=== PATIENT | female | born 1990 | race Caucasian/White ===

== ENCOUNTER → 2016-11-13 | Day surgery (SDC) | payer BC ==
[~2016-11-13] VITALS: Ht 167.6 cm; Wt 89.8 kg
[~2016-11-13] MED LIST: ACET50TA PO; BUPIVACAINE HCL 0.5% 10 ML VIAL XX ONE; BUPIVACAINE/EPIN 0.5% 30 ML VIAL As Ordered ONE; HYDROmorphone HCL 2 MG/ML 1ML VIAL (J1170) As Ordered ONE; LABETALOL HCL 100 MG/20 ML VIAL As Ordered ONE; LIDOCAINE W/EPINEPHRINE 1% 20ML VIAL As Ordered ONE; LIDOCAINE W/EPINEPHRINE 1% 20ML VIAL XX ONE; LR 1,000 ML IV SCH; MIDAZOLAM INJ 2 MG/2 ML VIAL (J2250) As Ordered ONE; MORPHINE 10 MG/ML 1ML VIAL IV PRN; MOTR200T40 PO; NUVAMIS2 VA; ONDANSETRON 4 MG ORAL DISINTEGRATING TAB (S0181) PO ONE; ONDANSETRON 4MG/2ML VIAL (J2405) As Ordered ONE; OXYC1TAB23 PO; PERCOCET 5MG/325MG TAB PO PRN; PHEN-239 PO; PROPOFOL 200 MG/20 ML VIAL As Ordered ONE; ROCURONIUM BROMIDE 50 MG/5 ML VIAL As Ordered ONE; SUCCINYLCHOLINE 100 MG/5 ML SYRINGE (J0330) As Ordered ONE; dexameTHASONE 4 MG/ML 1ML VIAL (J1100) As Ordered ONE; fentaNYL 100 MCG/2 ML INJECTION (J3010) As Ordered ONE; fentaNYL 100 MCG/2 ML INJECTION (J3010) IV PRN
[2016-11-13] MEDS: LR 1,000 ML IV SCH ×2 (10:30→10:52)
[2016-11-13 10:35] LABS: CONTROL LINE UCG INT CTR LINE PRESENT
[2016-11-13 15:30] VITALS: BP 129/78
--- NOTE | 2016-11-14 06:54 | RO ---
DATE OF PROCEDURE: 11/13/2016 PREPROCEDURE DIAGNOSIS: Chronic tonsillitis. POSTPROCEDURE DIAGNOSIS: Chronic tonsillitis. PROCEDURE: Tonsillectomy. SURGEON: Dr. Vic Velez TRAY WORKER: ANESTHESIA: ESTIMATED BLOOD LOSS: DESCRIPTION OF OPERATION: Under general anesthesia with the patient intubated. Jaramillo-Mohsen mouth gag was inserted, the tonsil area was infiltrated with lidocaine and epinephrine and Marcaine. Using a Coblator with setting of 6 and 4, the tonsil was dissected free from its bed on both sides. The base and apex and other areas were cauterized with a setting of 4 on the Coblator. No blood loss. The patient tolerated the procedure well. A nasogastric tube was passed to suction air from the upper esophagus. The patient was extubated and transferred to the recovery room in excellent condition.
== END | disposition home or self-care (01) ==
LOC: M SDC 10:15
PROVIDERS: ATTEND Otolaryngology
DX: J35.01 Chronic tonsillitis (principal); J45.909 Unspecified asthma, uncomplicated
CPT/HCPCS: 42826; 84703; 88302; J0330; J1100; J1170; J2250; J2405; J3010

== ENCOUNTER 2016-11-15 01:19 | Emergency (ER) | payer BC ==
[~2016-11-15 01:19] MED LIST changes: -BUPIVACAINE HCL 0.5% 10 ML VIAL XX ONE; -BUPIVACAINE/EPIN 0.5% 30 ML VIAL As Ordered ONE; -HYDROmorphone HCL 2 MG/ML 1ML VIAL (J1170) As Ordered ONE; -LABETALOL HCL 100 MG/20 ML VIAL As Ordered ONE; -LIDOCAINE W/EPINEPHRINE 1% 20ML VIAL As Ordered ONE; -LIDOCAINE W/EPINEPHRINE 1% 20ML VIAL XX ONE; -LR 1,000 ML IV SCH; -MIDAZOLAM INJ 2 MG/2 ML VIAL (J2250) As Ordered ONE; -MORPHINE 10 MG/ML 1ML VIAL IV PRN; -ONDANSETRON 4 MG ORAL DISINTEGRATING TAB (S0181) PO ONE; -ONDANSETRON 4MG/2ML VIAL (J2405) As Ordered ONE; -PERCOCET 5MG/325MG TAB PO PRN; -PROPOFOL 200 MG/20 ML VIAL As Ordered ONE; -ROCURONIUM BROMIDE 50 MG/5 ML VIAL As Ordered ONE; -SUCCINYLCHOLINE 100 MG/5 ML SYRINGE (J0330) As Ordered ONE; -dexameTHASONE 4 MG/ML 1ML VIAL (J1100) As Ordered ONE; -fentaNYL 100 MCG/2 ML INJECTION (J3010) As Ordered ONE; -fentaNYL 100 MCG/2 ML INJECTION (J3010) IV PRN
[2016-11-15] MEDS ORDERED: MAGNESIUM CITRATE 300 ML BTL As Ordered ONE (02:07)
[2016-11-15] MEDS ORDERED: methylPREDNISolone INJ 125 MG/2 ML VIAL (J2930) As Ordered ONE (02:08)
--- NOTE | 2016-11-15 02:49 | EDDOCDS ---
Nurse's Notes [facility] Name: Glen Mcneil Age: 26 yrs Sex: Female : 1990 Arrival Date: 11/15/2016 Time: 01:19 Bed 1 Private MD: Diagnosis: Encounter for surgical aftercare following surgery on the teeth or oral cavity-post traumatic uvulitis from tonsillectomy;Constipation Presentation: 11/15 01:23 Status: Patient is not a farm service consultant or dependent. cz 01:23 Acuity: SHANICE Level 3 cz 01:23 Method Of Arrival: Walkin/Carried/Asstd cz 01:23 Presenting complaint: Patient states: she had tonsillectomy yesterday today uvula is cz swollen and pt having difficulty swallowing. Adult Sepsis Screening: The patient does not have new or worsening altered mentation. Patient's respiratory rate is less than 22. Systolic blood pressure is greater than 100. Patient has a qSOFA score of 0- Negative Sepsis Screen. 01:23 Suicide/Homicide risk assessment- the patient denies having any suicidal and/or cz homicidal ideations and does not present with any other emotional, behavioral or mental health complaints. Transition of care: patient was not received from another setting of care. Triage Assessment: 01:26 General: Appears uncomfortable. Pain: Pain currently is 6 out of 10 on a pain scale. cz 01:26 HIV screening NA for this visit Offered previously. cz 01:26 General: Appears uncomfortable. Pain: Pain currently is 6 out of 10 on a pain scale. cz HIV screening NA for this visit Offered previously. 01:26 HIV screening NA for this visit Offered previously. 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 oxycodone-acetaminophen 5-325 mg Oral tab (Last dose: 11/14/2016 22:00) 2. control - PMHx: none; - PSHx: Tonsillectomy; - Social history: Smoking status: Patient states was never smoker of tobacco. No barriers to communication noted, The patient speaks fluent Qatari, Speaks appropriately for age. - Family history: No immediate family members are acutely ill. - : The pt / caregiver states he / she is not on anticoagulants. Home medication list is obtained from the patient. - Exposure Risk Screening:: None identified. Screenin:36 Screening information is obtained from the patient. Fall risk: No risks identified. km Assistance ADL's: requires no assistance with activities of daily living. Abuse/DV Screen: The patient / caregiver reports he/she is: not in a situation that causes fear, pain or injury. Nutritional screening: No deficits noted. Advance Directives: There is no active DNR order. home support is adequate. Assessment: 01:36 General: Appears in no apparent distress, comfortable, Behavior is appropriate for age, kmg1 cooperative, pleasant. Pain: Location: throat. EENT: Uvula swollen. Respiratory: Airway is patent Respiratory effort is even, unlabored, Respiratory pattern is regular, symmetrical. GI: Reports constipation. Vital Signs: 01:26 BP 150 / 103; Pulse 84; Resp 16; Temp 96.7; Pulse Ox 100% on R/A; Weight 89.81 kg; [facility] Height 5 ft. 6 in. (167.64 cm); 02:27 BP 139 / 87; Pulse 96; Resp 20; Temp 97.9(O); Pulse Ox 97% ; Pain 6/10; ls3 01:26 Body Mass Index 31.96 (89.81 kg, 167.64 cm) [facility] Vitals: 01:26 Log In Time: November 15, 2016 at 01:21. ED Course: 01:20 Patient visited by Maria M Jordan Reg. hs2 01:20 Patient moved to Waiting hs2 01:24 Triage Initiated [facility] 01:27 Nely Manjarrez RN is Primary Nurse. [facility] 01:27 Patient moved to 1 [facility] 01:36 The patient / caregiver is instructed regarding the plan of care and ED course. kmg1 01:39 Patient visited by Nely Manjarrez RN. kmg1 01:45 Ollie Alvarez DO is Attending Physician. mm11 01:45 Patient visited by Ollie Alvarez DO. mm11 01:58 Patient visited by Ollie Alvarez DO. mm11 01:59 Vic Velez is Referral Physician. mm11 02:28 Patient visited by Khushbu Quintero PCA. ls3 02:40 No IV's were initiated during this patient's visit. No procedures done that require angélica assistance. Administered Medications: 02:25 Drug: methylPREDNISolone Sodium Succinate 125 mg [methylprednisolone sodium succ 125 mg angélica solution for injection (125 mg)] Route: IM; Site: left gluteus; 02:25 Drug: Magnesium Citrate 300 ml [magnesium citrate oral solution (300 mL)] Route: PO; angélica Order Results: There are currently no results for this order. Outcome: 02:00 Discharge ordered by Provider. mm11 02:39 Discharge Assessment: Patient awake, alert and oriented x 3. No cognitive and/or angélica functional deficits noted. Patient verbalized understanding of disposition instructions. patient administered narcotics - no. The following High Risk Discharge criteria are identified: None. Discharged to home ambulatory, with parent. Condition: stable. Discharge instructions given to patient, Instructed on discharge instructions, follow up and referral plans. medication usage, Demonstrated understanding of instructions, medications, Pt was receptive of discharge instructions/ teaching. No special radiology studies were completed. Property sent home with patient. 02:47 Patient left the ED. nov Signatures: Nely Manjarrez RN RN [facility] Cherrie Owens RN RN jan Peters, Mary, RN RN mcp Zecher, Calvin, RN RN cz Maynard, Matthew, DO DO mm11 Khushbu Quintero, DISTRIBUTION DESIGNER DISTRIBUTION DESIGNER ls3 Maria M Jordan, Reg Reg hs2 Corrections: (The following items were deleted from the chart) 02: 01:23 Presenting complaint: Patient states: she had tonsillectomy yesterday today uvula cz is swollen and pt having difficulty swallowing [facility] 01:26 Log In Time: November 15, 2016 at 01:21 [facility] 01:23 Acuity: SHANICE Level 3 [facility] 01:26 General: Appears uncomfortable, [facility] 02:28 01:23 Method Of Arrival: Walkin/Carried/Asstd [facility] : 01:26 Pain: Pain currently is 6 out of 10 on a pain scale. [facility] : 01:26 General: Appears uncomfortable, [facility] 02: 02:28 HIV screening NA for this visit Offered previously. [facility] 01:23 Adult Sepsis Screening: The patient does not have new or worsening altered cz mentation. Patient's respiratory rate is less than 22. Systolic blood pressure is greater than 100. Patient has a qSOFA score of 0- Negative Sepsis Screen. 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 [facility] 02:32 01:23 Transition of care: patient was not received from another setting of care. [facility] 02:33 01:26 HIV screening NA for this visit Offered previously. [facility] 02:33 01:26 General: Appears uncomfortable, cz cz MTDD
--- NOTE | 2016-11-15 02:49 | EDDOCDS ---
Physician Documentation [facility] Name: Glen Mcneil Age: 26 yrs Sex: Female : 1990 Arrival Date: 11/15/2016 Time: 01:19 Bed 1 Private MD: Disposition: 11/15/16 02:00 Discharged to Home/Self Care. Impression: Encounter for surgical aftercare following surgery on the teeth or oral cavity - post traumatic uvulitis from tonsillectomy, Constipation. - Condition is Stable. - Discharge Instructions: Constipation, Adult, Uvulitis, Constipation, Adult, Wwek-wc-[id number], Tonsillectomy, Adult, Care After, Vyap-dq-Runs. - Medication Reconciliation, Local Pharmacy Hours form. - Follow up: Vic Velez; When: 2 - 3 days; Reason: Continuance of care. - Problem is an acute exacerbation. - Symptoms have improved. Historical: - Allergies: Mucinex DM; PENICILLINS; - Home Meds: 1. oxycodone-acetaminophen 5-325 mg Oral tab (Last dose: 11/14/2016 22:00) 2. control - PMHx: none; - PSHx: Tonsillectomy; - Social history: Smoking status: Patient states was never smoker of tobacco. No barriers to communication noted, The patient speaks fluent Slovak, Speaks appropriately for age. - Family history: No immediate family members are acutely ill. - : The pt / caregiver states he / she is not on anticoagulants. Home medication list is obtained from the patient. - Exposure Risk Screening:: None identified. 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 6 in. (167.64 cm); 02:27 BP 139 / 87; Pulse 96; Resp 20; Temp 97.9(O); Pulse Ox 97% ; Pain 6/10; ls3 01:26 Body Mass Index 31.96 (89.81 kg, 167.64 cm) [facility] MDM: 01:59 methylPREDNISolone Sodium Succinate 125 mg IM once ordered. mm11 01:59 Magnesium Citrate Liquid 300 ml PO once; Dispense home with pt. laurence. mm11 02:23 Financial registration complete. [facility] Administered Medications: :25 Drug: methylPREDNISolone Sodium Succinate 125 mg [methylprednisolone sodium succ 125 mg angélica solution for injection (125 mg)] Route: IM; Site: left gluteus; : Drug: Magnesium Citrate 300 ml [magnesium citrate oral solution (300 mL)] Route: PO; angélica Signatures: Nely Manjarrez RN RN kmg1 Cherrie Owens RN RN jan Peters, Mary, RN RN mcp Maynard, Matthew, DO mm11 Ruchi Jones [facility] MTDAngel
--- NOTE | 2016-11-18 10:29 | EDDOCDS ---
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 cz 01:23 Acuity: SHANICE Level 3 cz 01:23 Method Of Arrival: Walkin/Carried/Asstd cz 01:23 Presenting complaint: Patient states: she had tonsillectomy yesterday today uvula is cz swollen and pt having difficulty swallowing. Adult Sepsis Screening: The patient does not have new or worsening altered mentation. Patient's respiratory rate is less than 22. Systolic blood pressure is greater than 100. Patient has a qSOFA score of 0- Negative Sepsis Screen. 01:23 Suicide/Homicide risk assessment- the patient denies having any suicidal and/or cz homicidal ideations and does not present with any other emotional, behavioral or mental health complaints. Transition of care: patient was not received from another setting of care. Triage Assessment: 01:26 General: Appears uncomfortable. Pain: Pain currently is 6 out of 10 on a pain scale. cz 01:26 HIV screening NA for this visit Offered previously. cz 01:26 General: Appears uncomfortable. Pain: Pain currently is 6 out of 10 on a pain scale. cz HIV screening NA for this visit Offered previously. 01:26 HIV screening NA for this visit Offered previously. 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 oxycodone-acetaminophen 5-325 mg Oral tab (Last dose: 11/14/2016 22:00) 2. control - PMHx: none; - PSHx: Tonsillectomy; - Social history: Smoking status: Patient states was never smoker of tobacco. No barriers to communication noted, The patient speaks fluent Macedonian, Speaks appropriately for age. - Family history: No immediate family members are acutely ill. - : The pt / caregiver states he / she is not on anticoagulants. Home medication list is obtained from the patient. - Exposure Risk Screening:: None identified. Screenin:36 Screening information is obtained from the patient. Fall risk: No risks identified. km Assistance ADL's: requires no assistance with activities of daily living. Abuse/DV Screen: The patient / caregiver reports he/she is: not in a situation that causes fear, pain or injury. Nutritional screening: No deficits noted. Advance Directives: There is no active DNR order. home support is adequate. Assessment: 01:36 General: Appears in no apparent distress, comfortable, Behavior is appropriate for age, kmg1 cooperative, pleasant. Pain: Location: throat. EENT: Uvula swollen. Respiratory: Airway is patent Respiratory effort is even, unlabored, Respiratory pattern is regular, symmetrical. GI: Reports constipation. Vital Signs: 01:26 BP 150 / 103; Pulse 84; Resp 16; Temp 96.7; Pulse Ox 100% on R/A; Weight 89.81 kg; [facility] Height 5 ft. 6 in. (167.64 cm); 02:27 BP 139 / 87; Pulse 96; Resp 20; Temp 97.9(O); Pulse Ox 97% ; Pain 6/10; ls3 01:26 Body Mass Index 31.96 (89.81 kg, 167.64 cm) [facility] Vitals: 01:26 Log In Time: November 15, 2016 at 01:21. ED Course: 01:20 Patient visited by Maria M Jordan Reg. hs2 01:20 Patient moved to Waiting hs2 01:24 Triage Initiated [facility] 01:27 Nely Manjarrez RN is Primary Nurse. [facility] 01:27 Patient moved to 1 [facility] 01:36 The patient / caregiver is instructed regarding the plan of care and ED course. kmg1 01:39 Patient visited by Nely Manjarrez RN. kmg1 01:45 Ollie Alvarez DO is Attending Physician. mm11 01:45 Patient visited by Ollie Alvarez DO. mm11 01:58 Patient visited by Ollie Alvarez DO. mm11 01:59 Vic Velez is Referral Physician. mm11 02:28 Patient visited by Khushbu Quintero PCA. ls3 02:40 No IV's were initiated during this patient's visit. No procedures done that require angélica assistance. 03:36 [facility] Payment Agreement was scanned into [employer] and attached to record. [facility] 13:33 T-Sheet-- Draft Copy was scanned into [employer] and attached to record. gb Administered Medications: 02:25 Drug: methylPREDNISolone Sodium Succinate 125 mg [methylprednisolone sodium succ 125 mg angélica solution for injection (125 mg)] Route: IM; Site: left gluteus; 02:25 Drug: Magnesium Citrate 300 ml [magnesium citrate oral solution (300 mL)] Route: PO; angélica Order Results: There are currently no results for this order. Outcome: 02:00 Discharge ordered by Provider. mm11 02:39 Discharge Assessment: Patient awake, alert and oriented x 3. No cognitive and/or angélica functional deficits noted. Patient verbalized understanding of disposition instructions. patient administered narcotics - no. The following High Risk Discharge criteria are identified: None. Discharged to home ambulatory, with parent. Condition: stable. Discharge instructions given to patient, Instructed on discharge instructions, follow up and referral plans. medication usage, Demonstrated understanding of instructions, medications, Pt was receptive of discharge instructions/ teaching. No special radiology studies were completed. Property sent home with patient. 02:47 Patient left the ED. angélica Signatures: Nely Manjarrez, RN RN km Cherrie Owens RN Hallie Muniz RN RN mcp Zecher, Calvin, RN RN Mariam Cain, Reg Reg Ollie Esquivel, DO mm11 Ruchi Jones Khushbu Corral, CAMP COOK CAMP COOK ls3 Maria M Jordan, Reg Reg hs2 Corrections: (The following items were deleted from the chart) 02:26 01:23 Presenting complaint: Patient states: she had tonsillectomy yesterday today uvula cz is swollen and pt having difficulty swallowing [facility] 02:26 01:26 Log In Time: November 15, 2016 at 01:21 [facility] 02:27 01:23 Acuity: SHANICE Level 3 [facility] : 01:26 General: Appears uncomfortable, [facility] 02:28 01:23 Method Of Arrival: Walkin/Carried/Asstd [facility] 02:29 01:26 Pain: Pain currently is 6 out of 10 on a pain scale. [facility] 02:29 01:26 General: Appears uncomfortable, [facility] 02:30 02:28 HIV screening NA for this visit Offered previously. [facility] 02:31 01:23 Adult Sepsis Screening: The patient does not have new or worsening altered cz mentation. Patient's respiratory rate is less than 22. Systolic blood pressure is greater than 100. Patient has a qSOFA score of 0- Negative Sepsis Screen. [facility] 02: 01:23 Presenting complaint: Patient states: she had tonsillectomy yesterday today uvula cz is swollen and pt having difficulty swallowing 02: 01:23 Suicide/Homicide risk assessment- the patient denies having any suicidal and/or cz homicidal ideations and does not present with any other emotional, behavioral or mental health complaints [facility] : 01:23 Status: Patient is not a customer service professional or dependent. [facility] 02: 01:23 Transition of care: patient was not received from another setting of care. [facility] 02:33 01:26 HIV screening NA for this visit Offered previously. [facility] 02:33 01:26 General: Appears uncomfortable, cz cz Chart Complete MTDD
--- NOTE | 2016-11-18 10:29 | EDDOCDS ---
Physician Documentation [facility] Name: Glen Mcneil Age: 26 yrs Sex: Female : 1990 Arrival Date: 11/15/2016 Time: 01:19 Bed 1 Private MD: Disposition: 11/15/16 02:00 Discharged to Home/Self Care. Impression: Encounter for surgical aftercare following surgery on the teeth or oral cavity - post traumatic uvulitis from tonsillectomy, Constipation. - Condition is Stable. - Discharge Instructions: Constipation, Adult, Uvulitis, Constipation, Adult, Nzsq-so-Hqql, Tonsillectomy, Adult, Care After, Tqyz-dn-Rtnk. - Medication Reconciliation, Local Pharmacy Hours form. - Follow up: Vic Velez; When: 2 - 3 days; Reason: Continuance of care. - Problem is an acute exacerbation. - Symptoms have improved. Historical: - Allergies: Mucinex DM; PENICILLINS; - Home Meds: 1. oxycodone-acetaminophen 5-325 mg Oral tab (Last dose: 11/14/2016 22:00) 2. control - PMHx: none; - PSHx: Tonsillectomy; - Social history: Smoking status: Patient states was never smoker of tobacco. No barriers to communication noted, The patient speaks fluent Maltese, Speaks appropriately for age. - Family history: No immediate family members are acutely ill. - : The pt / caregiver states he / she is not on anticoagulants. Home medication list is obtained from the patient. - Exposure Risk Screening:: None identified. 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 6 in. (167.64 cm); 02:27 BP 139 / 87; Pulse 96; Resp 20; Temp 97.9(O); Pulse Ox 97% ; Pain 6/10; ls3 01:26 Body Mass Index 31.96 (89.81 kg, 167.64 cm) [facility] MDM: 01:59 methylPREDNISolone Sodium Succinate 125 mg IM once ordered. mm11 01:59 Magnesium Citrate Liquid 300 ml PO once; Dispense home with pt. ordered. mm11 02:23 Financial registration complete. [facility] 03:36 [facility] Payment Agreement was scanned into [employer] and attached to record. [facility] 13:33 T-Sheet-- Draft Copy was scanned into [employer] and attached to record. gb Administered Medications: 02:25 Drug: methylPREDNISolone Sodium Succinate 125 mg [methylprednisolone sodium succ 125 mg angélica solution for injection (125 mg)] Route: IM; Site: left gluteus; 02:25 Drug: Magnesium Citrate 300 ml [magnesium citrate oral solution (300 mL)] Route: PO; angélica Signatures: Nely Manjarrez RN RN kmg1 Cherrie Owens RN RN jan Peters, Mary, RN RN mcp Barnhardt, Gloria, Paulo Reg Ollie Esquivel, DO mm11 Ruchi Jones [facility] The chart was reviewed and I authenticate all verbal orders and agree with the evaluation and treatment provided.Attachments: 03:36 [facility] Payment Agreement [facility] 13:33 T-Sheet-- Draft Copy gb Chart Complete MTDD
--- NOTE | 2016-11-18 10:29 | EDDOCDS ---
Physician Documentation [facility] Name: Glen Mcneil Age: 26 yrs Sex: Female : 1990 Arrival Date: 11/15/2016 Time: 01:19 Bed 1 Private MD: Disposition: 11/15/16 02:00 Discharged to Home/Self Care. Impression: Encounter for surgical aftercare following surgery on the teeth or oral cavity - post traumatic uvulitis from tonsillectomy, Constipation. - Condition is Stable. - Discharge Instructions: Constipation, Adult, Uvulitis, Constipation, Adult, Wfxy-ew-Ykon, Tonsillectomy, Adult, Care After, Mhgb-wb-Axag. - Medication Reconciliation, Local Pharmacy Hours form. - Follow up: Vic Velez; When: 2 - 3 days; Reason: Continuance of care. - Problem is an acute exacerbation. - Symptoms have improved. Historical: - Allergies: Mucinex DM; PENICILLINS; - Home Meds: 1. oxycodone-acetaminophen 5-325 mg Oral tab (Last dose: 11/14/2016 22:00) 2. control - PMHx: none; - PSHx: Tonsillectomy; - Social history: Smoking status: Patient states was never smoker of tobacco. No barriers to communication noted, The patient speaks fluent Portuguese, Speaks appropriately for age. - Family history: No immediate family members are acutely ill. - : The pt / caregiver states he / she is not on anticoagulants. Home medication list is obtained from the patient. - Exposure Risk Screening:: None identified. 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 6 in. (167.64 cm); 02:27 BP 139 / 87; Pulse 96; Resp 20; Temp 97.9(O); Pulse Ox 97% ; Pain 6/10; ls3 01:26 Body Mass Index 31.96 (89.81 kg, 167.64 cm) [facility] MDM: 01:59 methylPREDNISolone Sodium Succinate 125 mg IM once ordered. mm11 01:59 Magnesium Citrate Liquid 300 ml PO once; Dispense home with pt. ordered. mm11 02:[address] [facility] 03:36 [facility] Payment Agreement was scanned into [employer] and attached to record. [facility] 13:33 T-Sheet-- Draft Copy was scanned into [employer] and attached to record. gb Administered Medications: 02:25 Drug: methylPREDNISolone Sodium Succinate 125 mg [methylprednisolone sodium succ 125 mg angélica solution for injection (125 mg)] Route: IM; Site: left gluteus; 02:25 Drug: Magnesium Citrate 300 ml [magnesium citrate oral solution (300 mL)] Route: PO; angélica Signatures: Nely Manjarrez RN RN kmg1 Cherrie Owens RN RN jan Peters, Mary, RN RN mcp Barnhardt, Gloria, Paulo Reg Ollie Esquivel, DO mm11 Ruchi Jones [facility] The chart was reviewed and I authenticate all verbal orders and agree with the evaluation and treatment provided.Attachments: 03:36 [facility] Payment Agreement [facility] 13:33 T-Sheet-- Draft Copy gb Chart Complete MTDD
== END 2016-11-15 02:47 | disposition home or self-care (01) ==
LOC: M ED 01:19
DX: K12.2 Cellulitis and abscess of mouth (principal); Z98.890 Other specified postprocedural states; K59.00 Constipation, unspecified; Z79.891 Long term (current) use of opiate analgesic; Z88.0 Allergy status to penicillin; Z88.8 Allergy status to other drugs, medicaments and biological substances
CPT/HCPCS: 96372; 99283; J2930

== ENCOUNTER 2017-10-02 19:32 | Emergency (ER) | payer BC ==
[~2017-10-02] VITALS: Ht 167.6 cm; Wt 93.2 kg
[~2017-10-02 19:32] MED LIST changes: -MOTR200T40 PO; +MOTR200T44 PO
[2017-10-02] MEDS ORDERED: ALBUTEROL SULFATE 2.5 MG/0.5 ML INH NEB SOLN NEB ONE (20:30)
[2017-10-02 21:49] VITALS: BP 135/93
[2017-10-02] MEDS ORDERED: ALBU83IN INH (21:50)
[2017-10-02] MEDS ORDERED: CLIN150C14 PO (21:50)
--- NOTE | 2017-10-03 08:00 | REP ---
Clinical: Cough . Comparison: None . Technique: PA and lateral. Findings: The mediastinum and cardiac silhouette are normal. The lung waddell are clear and without acute consolidation, effusion, or pneumothorax. The skeletal structures are intact and normal. Impression: 1. No acute cardiopulmonary process. Signed by Thanh Erickson MD 10/03/2017 07:52 A
== END 2017-10-02 21:56 | disposition home or self-care (01) ==
LOC: M ED 19:32
DX: J06.9 Acute upper respiratory infection, unspecified (principal); J45.990 Exercise induced bronchospasm; Z88.0 Allergy status to penicillin; Z91.02 Food additives allergy status; Z88.8 Allergy status to other drugs, medicaments and biological substances

== ENCOUNTER 2018-09-06 19:38 | Emergency (ER) | payer OTHER, BC, SELFPAY ==
[2018-09-06] MEDS: IBUPROFEN 800 MG TAB PO (20:34)
== END 2018-09-06 20:41 | disposition home or self-care (01) ==
LOC: M ED 19:38
DX: S00.83XA Contusion of other part of head, initial encounter (principal); S16.1XXA Strain of muscle, fascia and tendon at neck level, initial encounter; W50.1XXA Accidental kick by another person, initial encounter; Y92.238 Other place in hospital as the place of occurrence of the external cause; Y93.9 Activity, unspecified; Y99.0 Civilian activity done for income or pay; Z88.0 Allergy status to penicillin; Z88.8 Allergy status to other drugs, medicaments and biological substances; Z91.89 Other specified personal risk factors, not elsewhere classified
CPT/HCPCS: 99283

== ENCOUNTER → 2018-10-05 | Outpatient (CLI) | payer SELFPAY | LOC: M LRY 18:23 | DX: R06.2 Wheezing (principal) | CPT/HCPCS: 71046 ==

== ENCOUNTER → 2018-11-29 | Outpatient (CLI) | payer BC ==
[~2018-11-29] MED LIST changes: -ACET50TA PO; +ALBU83IN INH; +ARNU1INH PO; +CLIN150C14 PO; +MAPA500T2 PO; +TIZA4CAP PO
--- NOTE | 2018-11-29 14:35 | REP ---
MAXILLOFACIAL CT WITHOUT CONTRAST: HISTORY: Chronic pansinusitis. Minimal mucosal thickening is present in the ethmoid, maxillary and left sphenoid sinuses. The remaining sinuses are clear. Mucosal thickening involves the ostiomeatal units. The middle and inferior nasal turbinates are partially paradoxical. There is mild deviation of the nasal septum to the left. The cribriform plate, medial reese of the orbits and optic canals are intact. The carotid canals form a segment of the posterolateral reese of the sphenoid sinus. IMPRESSION: Sinus mucosal thickening as described above. Electronically Signed by Jarret Sanchez MD 11/29/2018 02:37 P
== END ==
LOC: M RAD 14:07
PROVIDERS: ATTEND Nurse Practitioner Family
DX: J32.9 Chronic sinusitis, unspecified (principal)

== ENCOUNTER → 2018-11-29 | Outpatient (CLI) | payer BC | LOC: M LAB 17:47 | PROVIDERS: ATTEND Nurse Practitioner Family | DX: J45.40 Moderate persistent asthma, uncomplicated (principal) ==

== ENCOUNTER → 2018-11-29 | Outpatient (REF) | payer BC ==
[2018-11-29 19:05] LABS: BASO % 0.4 % (0.0-1.0); EOS # 0.1 10^3/uL (0.0-0.50); EOS % 0.8 % (0.0-3.0); HEMATOCRIT 39.3 % (36.0-47.0); HEMOGLOBIN 13.2 g/dl (12.0-15.5); LYMPH # 2.8 10^3/uL (1.5-6.5); LYMPH % 26.1 % (24.0-44.0); MEAN CORPUSCULAR HEMOGLOBIN 29.3 pg (27.0-33.0); MEAN CORPUSCULAR HGB CONC 33.6 g/dl (32.0-36.5); MEAN CORPUSCULAR VOLUME 87.1 fl (80.0-96.0); MONO # 0.5 10^3/uL (0.0-0.8); MONO % 4.6 % (0.0-5.0); NEUTROPHILS # 7.2 10^3/uL (1.8-7.7); NEUTROPHILS % 67.7 % (36.0-66.0); PLATELET COUNT, AUTOMATED 298 10^3/uL (150-450); RED BLOOD COUNT 4.51 10^6/uL (4.00-5.40); WHITE BLOOD COUNT 10.6 10^3/uL (4.0-10.0)
[2018-11-29 19:34] LABS: ALBUMIN 3.2 GM/DL (3.2-5.2); ALT/SGPT 22 U/L (12-78); BILIRUBIN,TOTAL 0.2 MG/DL (0.2-1.0); BLOOD UREA NITROGEN 15 MG/DL (7-18); CALCIUM LEVEL 8.6 MG/DL (8.5-10.1); CARBON DIOXIDE LEVEL 24 MEQ/L (21-32); CHLORIDE LEVEL 107 MEQ/L (98-107); CHOLESTEROL LEVEL 151 MG/DL (<200); CHOLESTEROL RISK RATIO 2.097 (<5); CREATININE FOR GFR 0.72 MG/DL (0.55-1.30); GLOMERULAR FILTRATION RATE > 60.0 (>60); GLUCOSE, FASTING 109 MG/DL (70-100); HDL CHOLESTEROL 72 MG/DL (>40); LDL CHOLESTEROL 36 MG/DL (<100); MAGNESIUM LEVEL 1.9 MG/DL (1.8-2.4); NON-HDL-C 79 MG/DL; POTASSIUM SERUM 3.9 MEQ/L (3.5-5.1); SODIUM LEVEL 140 MEQ/L (136-145); TOTAL PROTEIN 6.8 GM/DL (6.4-8.2); TRIGLYCERIDES LEVEL 217 MG/DL (<150)
== END ==
LOC: M LAB REF 18:09
PROVIDERS: ATTEND Nurse Practitioner Family
DX: J45.40 Moderate persistent asthma, uncomplicated (principal); Z13.220 Encounter for screening for lipoid disorders

== ENCOUNTER → 2018-12-03 | Outpatient (REF) | payer BC ==
[2018-12-06 14:49] LABS: D001-IgE D pteronyssinus 0.69 kU/L (Class II); E001-IgE Cat Epith/Dander < 0.10 kU/L (Class 0); E005-IgE Dog Dander < 0.10 kU/L (Class 0); G002-IgE Bermuda Grass < 0.10 kU/L (Class 0); G008-IgE Kentucky Bluegrass < 0.10 kU/L (Class 0); M001-IgE Penicillium chrysogen < 0.10 kU/L (Class 0); M002 IgE Cladosporium herbaru < 0.10 kU/L (Class 0); M003 IgE Aspergillus fumigatu < 0.10 kU/L (Class 0); M006-IgE Alternaria alternata < 0.10 kU/L (Class 0); T001-IgE Maple/Box Elder < 0.10 kU/L (Class 0); T003-IgE Common Silver Birch < 0.10 kU/L (Class 0); T006-IgE Cedar, Mountain < 0.10 kU/L (Class 0); T007-IgE Oak, White < 0.10 kU/L (Class 0); T008-IgE Elm, American < 0.10 kU/L (Class 0); T015-IgE Ash, White < 0.10 kU/L (Class 0); T041-IgE Hickory, White < 0.10 kU/L (Class 0); T070-IgE White Mulberry < 0.10 kU/L (Class 0); W001-IgE Ragweed, Short 1.24 kU/L (Class II); W009-IgE Plantain, English < 0.10 kU/L (Class 0); W014-IgE Pigweed, Rough < 0.10 kU/L (Class 0); W018-IgE Sheep Sorrel < 0.10 kU/L (Class 0)
== END ==
LOC: M LAB REF 13:00
PROVIDERS: ATTEND Internal Medicine Pulmonary Disease
DX: J45.40 Moderate persistent asthma, uncomplicated (principal)

== ENCOUNTER → 2019-02-11 | Outpatient (CLI) | payer BC ==
[2019-02-11 14:31] LABS: FREE T4 0.95 NG/DL (0.76-1.46); THYROID STIMULATING HORMONE 1.36 uIU/ML (0.358-3.740)
== END ==
LOC: M LAB 13:15
PROVIDERS: ATTEND Internal Medicine Pulmonary Disease
DX: J45.40 Moderate persistent asthma, uncomplicated (principal)

== ENCOUNTER → 2019-03-07 | Outpatient (REF) | payer BC | LOC: M LAB REF 17:27 | PROVIDERS: ATTEND Obstetrics & Gynecology | DX: Z12.4 Encounter for screening for malignant neoplasm of cervix (principal) ==

== ENCOUNTER → 2019-04-28 | Outpatient (CLI) | payer BC ==
[2019-04-28 12:18] LABS: BASO # 0.1 10^3/uL (0.0-0.2); BASO % 0.5 % (0.0-1.0); EOS # 0.1 10^3/uL (0.0-0.50); EOS % 1.1 % (0.0-3.0); HEMOGLOBIN 12.9 g/dl (12.0-15.5); LYMPH # 2.1 10^3/uL (1.5-6.5); LYMPH % 21.5 % (24.0-44.0); MEAN CORPUSCULAR HEMOGLOBIN 29.8 pg (27.0-33.0); MEAN CORPUSCULAR HGB CONC 33.9 g/dl (32.0-36.5); MEAN CORPUSCULAR VOLUME 87.8 fl (80.0-96.0); MONO # 0.6 10^3/uL (0.0-0.8); MONO % 6.1 % (0.0-5.0); NEUTROPHILS % 70.5 % (36.0-66.0); PLATELET COUNT, AUTOMATED 228 10^3/uL (150-450); RED BLOOD COUNT 4.33 10^6/uL (4.00-5.40); WHITE BLOOD COUNT 9.9 10^3/uL (4.0-10.0)
--- NOTE | 2019-04-28 13:28 | REP ---
Chest x-ray: Two views. History: Cough . Comparison study: October 05, 2018 . Findings: The lungs are well inflated and free of infiltrate. The pleural angles are sharp. The heart size is normal. Pulmonary vasculature is not increased. No significant bony abnormality is seen. Impression: Negative chest x-ray. Electronically Signed by Abelardo Turpin MD 04/28/2019 01:20 P
== END ==
LOC: M LAB 11:34
PROVIDERS: ATTEND Internal Medicine Pulmonary Disease
DX: R05 Cough (principal)

== ENCOUNTER 2019-06-19 10:51 | Emergency (ER) | payer BC ==
[~2019-06-19] VITALS: Ht 167.6 cm; Wt 104.5 kg
[2019-06-19 10:52] VITALS: BP 150/87
[2019-06-19] MEDS ORDERED: FLON1SPR NARES (10:59)
[2019-06-19] MEDS ORDERED: DYMI137S NARES (10:59)
[2019-06-19] MEDS ORDERED: SING10TA32 PO (10:59)
[2019-06-19] MEDS ORDERED: ADV500INH INH (10:59)
[2019-06-19] MEDS ORDERED: XOLA150I SC (10:59)
[2019-06-19] MEDS ORDERED: PRED20TA PO (10:59)
[2019-06-19] MEDS ORDERED: guaiFENesin ER 600 MG TAB PO STA (11:32)
[2019-06-19] MEDS ORDERED: methylPREDNISolone INJ 125 MG/2 ML VIAL (J2930) IV ONE (11:45)
[2019-06-19] MEDS ORDERED: IPRATROPIUM 0.5MG/ALBUTEROL 2.5MG INH SOL UD 3ML (DUONEB)(J7620) NEB ONE (11:45)
[2019-06-19 12:06] LABS: BASO % 0.2 % (0.0-1.0); HEMATOCRIT 39.5 % (36.0-47.0); LYMPH # 0.8 10^3/uL (1.5-6.5); LYMPH % 7.8 % (24.0-44.0); MEAN CORPUSCULAR HEMOGLOBIN 28.9 pg (27.0-33.0); MEAN CORPUSCULAR HGB CONC 32.9 g/dl (32.0-36.5); MEAN CORPUSCULAR VOLUME 87.8 fl (80.0-96.0); MONO # 0.2 10^3/uL (0.0-0.8); MONO % 1.5 % (0.0-5.0); PLATELET COUNT, AUTOMATED 239 10^3/uL (150-450)
[2019-06-19 12:25] LABS: HCG, SERUM QUALITATIVE NEGATIVE (NEGATIVE)
[2019-06-19 12:34] LABS: ALBUMIN 3.7 GM/DL (3.2-5.2); ALT/SGPT 41 U/L (12-78); BILIRUBIN,DIRECT < 0.1 MG/DL (0.0-0.2); BILIRUBIN,TOTAL 0.3 MG/DL (0.2-1.0); BLOOD UREA NITROGEN 12 MG/DL (7-18); CALCIUM LEVEL 8.5 MG/DL (8.5-10.1); CARBON DIOXIDE LEVEL 27 MEQ/L (21-32); CHLORIDE LEVEL 109 MEQ/L (98-107); CREATININE FOR GFR 0.73 MG/DL (0.55-1.30); GLOMERULAR FILTRATION RATE > 60.0 (>60); GLUCOSE, FASTING 124 MG/DL (70-100); NT-PRO BNP 11 PG/ML (<125); SODIUM LEVEL 142 MEQ/L (136-145); THYROXINE (T4) 9.3 UG/DL (4.5-12.0)
[2019-06-19] MEDS ORDERED: MUCI600T31 PO (14:18)
--- NOTE | 2019-06-19 14:18 | REP ---
HISTORY: Dyspnea. COMPARISON: 04/28/2019 FINDINGS: The superior mediastinal structures are midline. The cardiac silhouette is unremarkable in size, shape and position. The diaphragmatic surfaces of the lungs are regular and the costophrenic angles are clear. The pulmonary waddell are clear. The imaged osseous structures are intact. IMPRESSION: There is no acute cardiopulmonary disease. Electronically Signed by Tl Charles DO 06/19/2019 02:21 P
== END 2019-06-19 14:27 | disposition home or self-care (01) ==
LOC: M ED 10:51
DX: J45.901 Unspecified asthma with (acute) exacerbation (principal); Z79.51 Long term (current) use of inhaled steroids; Z79.52 Long term (current) use of systemic steroids; Z79.899 Other long term (current) drug therapy
CPT/HCPCS: 71046; 80048; 80076; 83880; 84436; 84443; 84703; 85025; 85379; 87486; 87581; 87633; 87798; 94640; 96374; 99284; J2930

== ENCOUNTER → 2019-07-01 | Outpatient (CLI) | payer BC ==
[~2019-07-01] MED LIST changes: +ADV500INH INH; +DYMI137S NARES; +FLON1SPR NARES; +MUCI600T31 PO; +ONDA4TAB6 PO; +PRED20TA PO; +RALT40TA PO; +SING10TA32 PO; +TRUVTAB PO; +XOLA150I SC
--- NOTE | 2019-07-01 13:29 | REP ---
REASON: Asthma. PRIORS: None. The mediastinum and pulmonary keo are within normal limits. There is no mass or adenopathy. The imaged upper abdomen and imaged osseous structures are within normal limits. Evaluation of the lung waddell includes both inspiratory and expiratory high-resolution CT imaging of the lungs. There are no abnormal nodules, masses, or opacities. There is no honeycombing. There is no air trapping. There is no bronchiectasis. There are no abnormal ground-glass opacities. There are no abnormal septal opacities. Incidental note is made of two calcified granulomas in the right lower lobe. IMPRESSION: CT findings are within normal limits. Electronically Signed by Tl Charles DO 07/01/2019 02:21 P
== END ==
LOC: M RAD 10:55
PROVIDERS: ATTEND Internal Medicine Pulmonary Disease
DX: J45.41 Moderate persistent asthma with (acute) exacerbation (principal)

== ENCOUNTER 2019-07-08 20:59 | Emergency (ER) | payer BC, OTHER ==
[~2019-07-08] VITALS: Ht 167.6 cm; Wt 105.0 kg
[~2019-07-08 20:59] MED LIST changes: -ONDA4TAB6 PO; -RALT40TA PO; -TRUVTAB PO
[2019-07-08 21:27] LABS: HEMOGLOBIN 13.5 g/dl (12.0-15.5); RED BLOOD COUNT 4.58 10^6/uL (4.00-5.40); WHITE BLOOD COUNT 10.3 10^3/uL (4.0-10.0)
[2019-07-08 21:28] LABS: BASO % 0.3 % (0.0-1.0); EOS # 0.1 10^3/uL (0.0-0.50); LYMPH # 2.5 10^3/uL (1.5-6.5); MEAN CORPUSCULAR HEMOGLOBIN 29.5 pg (27.0-33.0); MEAN CORPUSCULAR HGB CONC 33.8 g/dl (32.0-36.5); MEAN CORPUSCULAR VOLUME 87.3 fl (80.0-96.0); MONO # 0.6 10^3/uL (0.0-0.8); MONO % 5.6 % (0.0-5.0); NEUTROPHILS # 7.1 10^3/uL (1.8-7.7); NEUTROPHILS % 68.8 % (36.0-66.0); PLATELET COUNT, AUTOMATED 237 10^3/uL (150-450)
[2019-07-08 21:56] LABS: ALBUMIN 3.8 GM/DL (3.2-5.2); ALT/SGPT 36 U/L (12-78); BILIRUBIN,TOTAL 0.2 MG/DL (0.2-1.0); BLOOD UREA NITROGEN 13 MG/DL (7-18); CALCIUM LEVEL 9.2 MG/DL (8.5-10.1); CARBON DIOXIDE LEVEL 29 MEQ/L (21-32); CHLORIDE LEVEL 106 MEQ/L (98-107); CREATININE FOR GFR 0.59 MG/DL (0.55-1.30); GLOMERULAR FILTRATION RATE > 60.0 (>60); GLUCOSE, FASTING 92 MG/DL (70-100); HCG, SERUM QUALITATIVE NEGATIVE (NEGATIVE); POTASSIUM SERUM 3.9 MEQ/L (3.5-5.1); SODIUM LEVEL 142 MEQ/L (136-145); TOTAL PROTEIN 7.2 GM/DL (6.4-8.2)
[2019-07-08] MEDS ORDERED: EXPOSURE KIT-ADULT 7 DAY SUPPLY PO ONE (22:00)
[2019-07-08] MEDS ORDERED: ONDA4TAB6 PO (22:14)
[2019-07-08] MEDS ORDERED: TRUVTAB PO (22:14)
[2019-07-08] MEDS ORDERED: RALT40TA PO (22:14)
[2019-07-08] MEDS ORDERED: ONDANSETRON 4 MG ORAL DISINTEGRATING TAB (Q0162 PER 1MG) PO ONE (22:15)
[2019-07-08 22:19] VITALS: BP 140/89
[2019-07-13 13:05] LABS: HEPATITIS B SURFACE ANTIBODY NEGATIVE (POSITIVE)
[2019-07-13 13:16] LABS: HEPATITIS B SURFACE ANTIGEN NEGATIVE (NEGATIVE)
== END 2019-07-08 22:36 | disposition home or self-care (01) ==
LOC: M ED 20:59
DX: Z77.21 Contact with and (suspected) exposure to potentially hazardous body fluids (principal); Z79.899 Other long term (current) drug therapy; Z88.0 Allergy status to penicillin; Z88.8 Allergy status to other drugs, medicaments and biological substances
CPT/HCPCS: 36415; 80053; 84703; 85025; 86706; 86803; 87340; 87389; 99284; Q0162

== ENCOUNTER → 2019-09-13 | Outpatient (CLI) | payer BC ==
[~2019-09-13] MED LIST changes: +ONDA4TAB6 PO; +RALT40TA PO; +TRUVTAB PO
[2019-09-13 11:36] LABS: FOLLICLE STIMULATING HORMONE 0.7 mIU/mL; FREE T4 1.01 NG/DL (0.76-1.46); LUTEINIZING HORMONE 0.7 mIU/mL
[2019-09-13 11:38] LABS: HCG, SERUM QUALITATIVE POSITIVE (NEGATIVE)
[2019-09-13 13:25] LABS: HCG, SERUM QUANTITATIVE 58 MIU/ML
== END ==
LOC: M LAB 09:18
PROVIDERS: ATTEND Advanced Practice Midwife
DX: N92.6 Irregular menstruation, unspecified (principal)

== ENCOUNTER → 2019-09-15 | Outpatient (CLI) | payer BC | LOC: M LAB 08:04 | PROVIDERS: ATTEND Advanced Practice Midwife | DX: O36.80X0 Pregnancy with inconclusive fetal viability, not applicable or unspecified (principal); Z3A.00 Weeks of gestation of pregnancy not specified ==

== ENCOUNTER 2019-09-16 08:34 | Emergency (ER) | payer BC ==
[~2019-09-16] VITALS: Ht 167.6 cm; Wt 105.9 kg
[2019-09-16 10:46] VITALS: BP 147/77
== END 2019-09-16 10:47 | disposition home or self-care (01) ==
LOC: M ED 08:34
DX: O99.511 Diseases of the respiratory system complicating pregnancy, first trimester (principal); Z79.899 Other long term (current) drug therapy; Z88.0 Allergy status to penicillin; Z88.8 Allergy status to other drugs, medicaments and biological substances

== ENCOUNTER → 2019-09-17 | Outpatient (CLI) | payer BC | LOC: M LAB 09:05 | PROVIDERS: ATTEND Advanced Practice Midwife | DX: N92.6 Irregular menstruation, unspecified (principal) ==

== ENCOUNTER → 2019-09-20 | Outpatient (CLI) | payer BC | LOC: M LAB 15:51 | PROVIDERS: ATTEND Advanced Practice Midwife | DX: N92.6 Irregular menstruation, unspecified (principal) ==

== ENCOUNTER → 2019-10-12 | Outpatient (CLI) | payer BC ==
[2019-10-12 19:05] LABS: BASO # 0.1 10^3/uL (0.0-0.2); BASO % 0.4 % (0.0-1.0); EOS # 0.1 10^3/uL (0.0-0.5); EOS % 0.8 % (0.0-3.0); HEMATOCRIT 37.5 % (36.0-47.0); HEMOGLOBIN 12.7 g/dl (12.0-15.5); LYMPH # 2.3 10^3/uL (1.5-5.0); LYMPH % 20.6 % (24.0-44.0); MEAN CORPUSCULAR HEMOGLOBIN 29.3 pg (27.0-33.0); MEAN CORPUSCULAR HGB CONC 33.9 g/dl (32.0-36.5); MEAN CORPUSCULAR VOLUME 86.6 fl (80.0-96.0); MONO # 0.6 10^3/uL (0.0-0.8); MONO % 5.3 % (0.0-5.0); NEUTROPHILS % 72.4 % (36.0-66.0); PLATELET COUNT, AUTOMATED 248 10^3/uL (150-450); RED BLOOD COUNT 4.33 10^6/uL (4.00-5.40); WHITE BLOOD COUNT 11.1 10^3/uL (4.0-10.0)
[2019-10-12 19:26] LABS: HEMOGLOBIN A1c 5.5 %
[2019-10-14 10:43] LABS: HEPATITIS B SURFACE ANTIGEN NEGATIVE (NEGATIVE); HEPATITIS C VIRUS ABY INDEX 0.1 INDEX (<0.8); HIV 1&2 SCREEN CENTAUR NEGATIVE (NEGATIVE); RUBELLA IgG QUALITATIVE IMMUNE (IMMUNE)
== END ==
LOC: M PLALAB 15:28
PROVIDERS: ATTEND Advanced Practice Midwife
DX: O36.80X0 Pregnancy with inconclusive fetal viability, not applicable or unspecified (principal); Z3A.00 Weeks of gestation of pregnancy not specified

== ENCOUNTER → 2019-11-08 | Outpatient (REF) | payer BC ==
[~2019-11-08] MED LIST changes: +PRENTAB9 PO
[2019-11-08 17:01] LABS: CHLAMYDIA DNA AMPLIFICATION NEGATIVE (NEGATIVE); GC DNA AMPLIFICATION NEGATIVE (NEGATIVE)
== END ==
LOC: M SFHCWAGY 12:56
PROVIDERS: ATTEND Advanced Practice Midwife
DX: O36.80X0 Pregnancy with inconclusive fetal viability, not applicable or unspecified (principal); Z3A.00 Weeks of gestation of pregnancy not specified

== ENCOUNTER 2019-11-12 23:06 | Emergency (ER) | payer BC ==
[~2019-11-12] VITALS: Ht 167.6 cm; Wt 110.8 kg
[~2019-11-12 23:06] MED LIST changes: -PRENTAB9 PO
[2019-11-12] MEDS ORDERED: PRENTAB9 PO (23:12)
[2019-11-12] MEDS ORDERED: MUCI600T31 PO (23:36)
[2019-11-12] MEDS ORDERED: PRED20TA PO (23:59)
[2019-11-13] MEDS ORDERED: predniSONE 20 MG TAB PO ONE
[2019-11-13 00:09] VITALS: BP 145/93
== END 2019-11-13 00:12 | disposition home or self-care (01) ==
LOC: M ED 23:06
DX: J45.901 Unspecified asthma with (acute) exacerbation (principal); J47.9 Bronchiectasis, uncomplicated; Z79.899 Other long term (current) drug therapy; Z88.0 Allergy status to penicillin; Z88.8 Allergy status to other drugs, medicaments and biological substances

== ENCOUNTER 2019-11-17 10:52 | Emergency (ER) | payer BC ==
[~2019-11-17] VITALS: Ht 167.6 cm; Wt 110.5 kg
[~2019-11-17 10:52] MED LIST changes: +PRENTAB9 PO
[2019-11-17] MEDS ORDERED: IPRATROPIUM 0.5MG/ALBUTEROL 2.5MG INH SOL UD 3ML (DUONEB)(J7620) As Ordered ONE (11:20)
[2019-11-17] MEDS ORDERED: IPRATROPIUM 0.5MG/ALBUTEROL 2.5MG INH SOL UD 3ML (DUONEB)(J7620) NEB ONE (11:30)
[2019-11-17 13:15] VITALS: BP 130/74
[2019-11-17] MEDS ORDERED: [UNRECOGNIZED DRUG - CODE] NS (14:09)
[2019-11-17] MEDS ORDERED: [UNRECOGNIZED DRUG - CODE] EXT (14:15)
== END 2019-11-17 14:31 | disposition home or self-care (01) ==
LOC: M ED 10:52
DX: O99.511 Diseases of the respiratory system complicating pregnancy, first trimester (principal); J45.909 Unspecified asthma, uncomplicated; J47.9 Bronchiectasis, uncomplicated; Z3A.13 13 weeks gestation of pregnancy; Z88.0 Allergy status to penicillin; Z88.8 Allergy status to other drugs, medicaments and biological substances; Z79.51 Long term (current) use of inhaled steroids; Z79.899 Other long term (current) drug therapy

== ENCOUNTER → 2019-11-29 | Outpatient (CLI) | payer BC ==
[~2019-11-29] MED LIST changes: +[UNRECOGNIZED DRUG - CODE] EXT; +[UNRECOGNIZED DRUG - CODE] NS
--- NOTE | 2019-11-29 12:39 | REP ---
Bilateral lower extremity deep vein duplex ultrasound: The deep veins demonstrate normal compression, normal Doppler color flow and normal Doppler waveforms with respiration and augmentation from the popliteal vein to the common femoral vein. Impression: There is no deep vein thrombus on the right on the left . Electronically Signed by Davidson Lutz MD 11/29/2019 12:30 P
== END ==
LOC: M RAD 11:53
PROVIDERS: ATTEND Internal Medicine Pulmonary Disease
DX: R60.0 Localized edema (principal)

== ENCOUNTER 2019-12-25 22:13 | Emergency (ER) | payer BC ==
[~2019-12-25] VITALS: Ht 167.6 cm; Wt 130.0 kg
[2019-12-25] MEDS ORDERED: CEFD1CAP8 PO (22:17)
[2019-12-25] MEDS ORDERED: BUDESONIDE 0.5 MG/2 ML INHALATION SUSPENSION INH ONE (23:53)
[2019-12-26] MEDS ORDERED: NS 1,000 ML IV ONE
[2019-12-26 00:12] LABS: BASO % 0.3 % (0.0-1.0); EOS % 0.4 % (0.0-3.0); HEMATOCRIT 34.9 % (36.0-47.0); HEMOGLOBIN 11.9 g/dl (12.0-15.5); LYMPH # 1.6 10^3/uL (1.5-5.0); LYMPH % 14.4 % (24.0-44.0); MEAN CORPUSCULAR HEMOGLOBIN 29.3 pg (27.0-33.0); MEAN CORPUSCULAR HGB CONC 34.1 g/dl (32.0-36.5); MONO # 0.9 10^3/uL (0.0-0.8); MONO % 8.1 % (0.0-5.0); NEUTROPHILS # 8.1 10^3/uL (1.5-8.5); NEUTROPHILS % 75.4 % (36.0-66.0); PLATELET COUNT, AUTOMATED 200 10^3/uL (150-450); RED BLOOD COUNT 4.06 10^6/uL (4.00-5.40); WHITE BLOOD COUNT 10.8 10^3/uL (4.0-10.0)
[2019-12-26] MEDS: MAG SULF 1GM/100ML (MAG RUN) 1 GM in IV 1 EA IV SCH ×2 (00:17→00:30)
[2019-12-26 00:23] LABS: BLOOD UREA NITROGEN 10 MG/DL (7-18); CALCIUM LEVEL 8.5 MG/DL (8.5-10.1); CARBON DIOXIDE LEVEL 25 MEQ/L (21-32); CHLORIDE LEVEL 107 MEQ/L (98-107); CREATININE FOR GFR 0.49 MG/DL (0.55-1.30); GLOMERULAR FILTRATION RATE > 60.0 (>60); GLUCOSE, FASTING 90 MG/DL (70-100); POTASSIUM SERUM 3.3 MEQ/L (3.5-5.1); SODIUM LEVEL 139 MEQ/L (136-145)
[2019-12-26] MEDS ORDERED: methylPREDNISolone INJ 125 MG/2 ML VIAL (J2930) IV ONE (01:30)
[2019-12-26 02:19] VITALS: BP 127/85
== END 2019-12-26 02:21 | disposition home or self-care (01) ==
LOC: M ED 22:13
DX: R06.09 Other forms of dyspnea (principal); R05 Cough
CPT/HCPCS: 80048; 85025; 94640; 94760; 96361; 96374; 99284; J2930; J3475

== ENCOUNTER → 2019-12-26 | Outpatient (CLI) | payer BC ==
[~2019-12-26] MED LIST changes: +CEFD1CAP8 PO; +OSEL75CA PO
--- NOTE | 2019-12-26 17:15 | REP ---
Clinical: Anatomical evaluation. Comparison: None . Findings: Examination demonstrates a single live intrauterine in cephalic presentation. motion is identified by technologist. Placenta is noted anterior and grade zero without evidence for placenta previa or abruption. Amniotic fluid volume is normal. Cervix measures 3.8 cm in length and appears closed. No evidence for nuchal cord. Gestational age by LMP 18 weeks 6 days with IZABELA 05/22/2020 . Gestational age by current measurements 19 weeks 4 days with IZABELA 05/17/2020 . FHR equals 136 beats per minute. BPD 4.5 cm 19 weeks 5 days HC 16.4 cm 19 weeks 1 day AC 14.4 cm 19 weeks 5 days FL 3.1 cm 19 weeks 5 days HL 2.9 cm 19 weeks 3 days HC/AC ratio 1.14 Estimated weight 304 grams ( 75th percentile). Anatomical assessment demonstrates normal structures including cranium, choroid plexus, cavum, cerebellum/posterior fossa, lungs, four-chamber heart/ventricular outflow tracts, diaphragm, stomach, cord insertion/three-vessel cord, bladder, spine, and extremities. Limited evaluation of the facial features and kidneys. Impression: 1. Single live intrauterine demonstrating appropriate interval growth. 2. Anatomical limitations as noted above. Electronically Signed by Thanh Erickson MD 12/26/2019 05:07 P
== END ==
LOC: M RAD 15:20
PROVIDERS: ATTEND Advanced Practice Midwife
DX: O99.512 Diseases of the respiratory system complicating pregnancy, second trimester (principal)

== ENCOUNTER 2019-12-27 22:50 | Emergency (ER) | payer BC ==
[~2019-12-27] VITALS: Ht 167.6 cm; Wt 110.9 kg
[~2019-12-27 22:50] MED LIST changes: -OSEL75CA PO
[2019-12-28] MEDS ORDERED: OSEL75CA PO (01:10)
[2019-12-28] MEDS ORDERED: OSELTAMIVIR PHOSPHATE 75 MG CAP (TAMIFLU) PO ONE (01:15)
[2019-12-28 01:26] VITALS: BP 132/86
== END 2019-12-28 01:32 | disposition home or self-care (01) ==
LOC: M ED 22:50
DX: J10.1 Influenza due to other identified influenza virus with other respiratory manifestations (principal); J45.909 Unspecified asthma, uncomplicated; R05 Cough; Z88.0 Allergy status to penicillin; Z88.8 Allergy status to other drugs, medicaments and biological substances; O98.512 Other viral diseases complicating pregnancy, second trimester; Z3A.19 19 weeks gestation of pregnancy

== ENCOUNTER → 2019-12-27 | Outpatient (CLI) | payer BC | LOC: M LAB 12:23 | PROVIDERS: ATTEND Internal Medicine Pulmonary Disease | DX: J47.9 Bronchiectasis, uncomplicated (principal) ==

== ENCOUNTER → 2020-01-25 | Outpatient (CLI) | payer BC ==
[~2020-01-25] MED LIST changes: +OSEL75CA PO
--- NOTE | 2020-01-25 13:23 | REP ---
OBSTETRIC SONOGRAPHY: HISTORY: Supervision of followup anatomy. COMPARISON STUDY: December 26, 2019. SONOGRAPHIC FINDINGS: Scanning through the gravid uterus demonstrates a viable single intrauterine gestation in a cephalic lie. motion is observed and heart rate is recorded at 163 beats per minute. An anterior grade 0 placenta is seen without evidence of previa or abruption. Amniotic fluid is subjectively normal. Closed cervical length is 4.4 cm. No extrauterine abnormalities observed. There has been appropriate interval growth. Four-chamber heart and left ventricular outflow tract views are less than optimally seen today however these structures were identified previously. The following anatomic structures are identified today and felt to be unremarkable: cranium, choroid plexus, cavum, cerebellum and posterior fossa, face and profile, lungs, right ventricular outflow tract view, diaphragm, left-sided stomach, abdominal wall cord insertion, three-vessel cord, kidneys and bladder, spine, upper and lower extremities. BIOMETRY CHART: BPD 5.7 cm = 23 weeks 2 days Head circumference 21.1 cm = 23 weeks 1 day Abdominal circumference 18.8 cm = 23 weeks 4 days Femur length 4.1 cm = 23 weeks 2 days Humeral length 3.9 cm = 23 weeks 5 days HC/AC ratio normal 1.13. Cephalic index normal 0.74. Estimated weight 592 grams, 1 pound 4 ounces, 55th percentile for 23 weeks 1 day. IMPRESSION: Viable single intrauterine gestation at 23 weeks 3 days by today's composite sonographic criteria. Expected gestational age estimate based on prior sonography is 23 weeks 1 day. IZABELA by prior sonography May 22, 2020. In combination with the prior study, anatomic survey is felt to be complete. Electronically Signed by Abelardo Turpin MD 01/25/2020 01:30 P
== END ==
LOC: M RAD 08:39
PROVIDERS: ATTEND Advanced Practice Midwife
DX: Z34.92 Encounter for supervision of normal pregnancy, unspecified, second trimester (principal); Z3A.23 23 weeks gestation of pregnancy

== ENCOUNTER → 2020-02-13 | Outpatient (REF) | payer BC ==
[2020-02-13 14:12] LABS: HEMATOCRIT 38.2 % (36.0-47.0); HEMOGLOBIN 12.7 g/dl (12.0-15.5); MEAN CORPUSCULAR HEMOGLOBIN 29.7 pg (27.0-33.0); MEAN CORPUSCULAR HGB CONC 33.2 g/dl (32.0-36.5); MEAN CORPUSCULAR VOLUME 89.3 fl (80.0-96.0); PLATELET COUNT, AUTOMATED 205 10^3/uL (150-450); RED BLOOD COUNT 4.28 10^6/uL (4.00-5.40)
== END ==
LOC: M PLALAB 08:54
PROVIDERS: ATTEND Advanced Practice Midwife
DX: Z34.92 Encounter for supervision of normal pregnancy, unspecified, second trimester (principal)

== ENCOUNTER → 2020-04-20 | Outpatient (CLI) | payer BC ==
--- NOTE | 2020-04-20 16:14 | REP ---
REASON FOR EXAM: Growth and amniotic fluid index check. Multiple ultrasonographic images of the gravid uterus shows a single living intrauterine gestation in the cephalic presentation. Doppler interrogation of the heart shows heart rate of 140 beats per minute. The placenta is anterior and not low lying. The subjective amniotic fluid volume is within normal limits. The cervix measures 3.6 cm in length and is closed. The calculated amniotic fluid volume index is 11.8 with an expected range of 7.8 to 24.9. BPD 8.8 cm = 35 weeks 3 days HC 31.6 cm = 35 weeks 3 days AC 31.0 cm = 35 weeks 0 days FL 6.9 cm = 35 weeks 2 days The estimated weight is 2603 grams which is at the 44th percentile for a 72-rvbi-5-day gestational age. A single living intrauterine gestation as described above with an estimated gestational age of 35 weeks 0 days via composite criteria and an estimated date of delivery of 05/25/2020 by today's exam.
== END ==
LOC: M WHC 12:49
PROVIDERS: ATTEND Advanced Practice Midwife
DX: Z3A.33 33 weeks gestation of pregnancy (principal)

== ENCOUNTER → 2020-04-20 | Outpatient (REF) | payer BC | LOC: M PLALAB 14:57 | PROVIDERS: ATTEND Advanced Practice Midwife | DX: O99.513 Diseases of the respiratory system complicating pregnancy, third trimester (principal) ==

== ENCOUNTER 2020-05-15 06:35 | Outpatient (CLI) | payer BC ==
[~2020-05-15] VITALS: Ht 167.6 cm; Wt 120.2 kg
[2020-05-15 08:30] LABS: HEMATOCRIT 36.5 % (36.0-47.0); HEMOGLOBIN 12.3 g/dl (12.0-15.5); MEAN CORPUSCULAR HEMOGLOBIN 29.4 pg (27.0-33.0); MEAN CORPUSCULAR HGB CONC 33.7 g/dl (32.0-36.5); MEAN CORPUSCULAR VOLUME 87.1 fl (80.0-96.0); PLATELET COUNT, AUTOMATED 202 10^3/uL (150-450); RED BLOOD COUNT 4.19 10^6/uL (4.00-5.40); WHITE BLOOD COUNT 9.6 10^3/uL (4.0-10.0)
[2020-05-15 09:00] LABS: ALT/SGPT 22 U/L (12-78); BILIRUBIN,TOTAL 0.4 MG/DL (0.2-1.0); CREATININE FOR GFR 0.42 MG/DL (0.55-1.30); GLOMERULAR FILTRATION RATE > 60.0 (>60); LDH LACTATE DEHYDROGENASE 148 U/L (84-246); URIC ACID 2.7 MG/DL (2.6-6.0)
[2020-05-15 09:07] LABS: TOTAL PROTEIN,RANDOM URINE 23.1 MG/DL (0.0-12.0)
--- NOTE | 2020-05-15 14:18 | IPN ---
DATE OF EVALUATION: 05/15/2020 29-year-old, (G) 2, para (P) 1, female at 39 and 0/7 weeks gestation who presents with spotting vaginally for several hours as well as mild cramping. There is good movement. She denies loss of fluid. OBJECTIVE: Blood pressure 147/95. Pulse 80. She is in no apparent distress. Head and Neck Exam: Normal. Abdomen: Nontender. Gravid. heart tones Category 1. Contractions irregular, mild. Cervix 1 cm, 50%, -2, posterior, moderate consistency, vertex. Extremities: Nontender. Preeclampsia profile normal. Urine PC ratio 0.17. ASSESSMENT: 29-year-old, G2, P1, at 39 and 0/7 weeks gestation with new onset gestational hypertension, not in labor currently. PLAN: Recommend labor induction due to new onset hypertension. The patient will go home to make arrangements for her child and then come back this evening to begin the induction process.
== END 2020-05-15 09:40 ==
LOC: M LDO 06:35
PROVIDERS: ATTEND Advanced Practice Midwife
DX: O13.3 Gestational [pregnancy-induced] hypertension without significant proteinuria, third trimester (principal); O26.853 Spotting complicating pregnancy, third trimester; O26.893 Other specified pregnancy related conditions, third trimester; R10.9 Unspecified abdominal pain; Z3A.39 39 weeks gestation of pregnancy
CPT/HCPCS: 36415; 59025; 82247; 82565; 82570; 83615; 84156; 84450; 84460; 84550; 85027; G0378; G0463

== ENCOUNTER 2020-05-16 01:06 | Inpatient (IN) | payer BC ==
[~2020-05-16] VITALS: Ht 167.6 cm; Wt 119.8 kg
[2020-05-16] VITALS (25 sets, daily range): BP systolic 108–182; BP diastolic 61–101
[2020-05-16 02:28] LABS: HEMATOCRIT 35.3 % (36.0-47.0); HEMOGLOBIN 11.9 g/dl (12.0-15.5); MEAN CORPUSCULAR HEMOGLOBIN 29.2 pg (27.0-33.0); MEAN CORPUSCULAR HGB CONC 33.7 g/dl (32.0-36.5); MEAN CORPUSCULAR VOLUME 86.7 fl (80.0-96.0); PLATELET COUNT, AUTOMATED 205 10^3/uL (150-450); RED BLOOD COUNT 4.07 10^6/uL (4.00-5.40); WHITE BLOOD COUNT 8.2 10^3/uL (4.0-10.0)
[2020-05-16] MEDS: miSOPROStol 50 MCG 1/2 TAB (S0191) SL SCH ×2 (02:50→06:54)
--- NOTE | 2020-05-16 09:58 | HPE ---
DATE OF ADMISSION: 05/16/2020 30-year-old, (G) 2, para (P) 1 female at 39 and 1/7 weeks gestation who presented to triage earlier in the day with vaginal spotting, clear, pink. She was noted to have elevated blood pressure in the range of 140s to 150s over 90s. This was persistent over several checks. Decision was made to proceed towards delivery due to gestational hypertension. She did leave the hospital to make arrangements for her child nutrition director and then came back this evening. OBSTETRICAL HISTORY: February 2016 - 41 week vaginal delivery of an 8 pound 5 ounce male infant. Complicated by spinal headache requiring epidural blood patch. MEDICAL HISTORY: 1. Asthma. 2. Bronchiectasis. SURGICAL HISTORY: Tonsillectomy. ALLERGIES: - PENICILLIN - - OMEPRAZOLE SOCIAL HISTORY: The patient is . She lives in [place]. She denies cigarettes, alcohol or drug use. 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 FAMILY HISTORY: Noncontributory. PHYSICAL EXAMINATION: Blood pressure 140/90. Pulse 84. She is in no apparent distress. Head and Neck Exam: Normal. Lungs: Clear. Heart: Regular. Abdomen: Nontender. Gravid. heart tones Category 1. Contractions rare, irregular. Sterile Vaginal Exam: 1 cm, 50%, -2, posterior, moderate, vertex. Extremities: Nontender. LABS: GBS negative. ASSESSMENT: 30-year-old, G2, P1, at 39 and 1/7 weeks gestation with gestational hypertension. PLAN: The patient is admitted on 05/16/2020. Risks of induction were discussed.
[2020-05-16] MEDS ORDERED: LR 1,000 ML IV SCH (10:57)
[2020-05-16] MEDS ORDERED: OXYTOCIN DRIP 30 UNITS in IV 1 EA IV SCH ×2 (11:00→22:15)
[2020-05-16] MEDS ORDERED: PROMETHAZINE INJ 25 MG/ML VIAL (J2550) IV ONE (18:45)
[2020-05-16] MEDS ORDERED: BUTORPHANOL 2 MG/ML INJ (J0595) IV ONE (18:45)
[2020-05-16] MEDS ORDERED: FENTANYL 2MCG/ML ROPIVACAINE 0.2% IN 0.9% NACL 100ML IVBAG As Ordered ONE (21:36)
[2020-05-16] MEDS ORDERED: MEASLES,MUMPS,RUBELLA VACCINE INJ (MMR-II) (90707) SC SCH (22:15)
[2020-05-16] MEDS ORDERED: DIBUCAINE 1% OINTMENT 30GM TOP PRN (22:15)
[2020-05-16] MEDS ORDERED: ACETAMINOPHEN 500 MG TAB PO PRN (22:15)
[2020-05-16] MEDS ORDERED: RHOGAM 300 MCG (1500 IU) INJ (J2790) IM SCH (22:15)
[2020-05-16] MEDS ORDERED: ACETAMINOPHEN TAB 650MG DOSE (2X325MG) PO PRN (22:15)
[2020-05-16] MEDS ORDERED: DOCUSATE SODIUM 100 MG CAP PO PRN (22:15)
[2020-05-16] MEDS ORDERED: IBUPROFEN 600MG TAB PO PRN (22:15)
[2020-05-16] MEDS: IBUPROFEN 800 MG TAB PO PRN (22:31)
[2020-05-17 00:17] VITALS: BP 123/59
[2020-05-17 05:34] VITALS: BP 120/72
[2020-05-17] MEDS: PRENATAL VITAMINS CHEWABLE TABLET PO SCH (07:46)
--- NOTE | 2020-05-17 09:20 | DN ---
DATE OF DELIVERY: 05/16/2020 Glen is a 30-year-old 2, para 2-0-0-2, who was admitted to labor and delivery for induction of labor due to gestational hypertension. Misoprostol and intravenous (IV) Pitocin were used, and labor did ensue. She coped with her labor physiologically. She reached complete dilation at 2143. She pushed to a normal spontaneous vaginal delivery of a live female in left occipitoanterior (NKECHI) position with restitution to right occipitotransverse (ROT) position at 2145. There was a nuchal cord times one loose, reduced manually at the time of delivery, as well as a right compound hand. The was placed on maternal abdomen, crying and active. Mouth and nares were bulb suctioned. The cord was clamped times two once pulsations ceased by the father of the baby under my direction. Spontaneous expulsion of an intact placenta with three-vessel cord by Almanzar mechanism. Uterine hemostasis achieved with uterine fundal massage and IV Pitocin rapid infusion. Estimated blood loss 200 mL. Perineum and vagina inspected, noted to be intact. female weighed 3440 grams, 7 pounds 9 ounces, scores 8 and 9. The family have named their daughter Ifrah, and mother is going to breastfeed her daughter at the close of delivery. Lap counts and instrument counts were correct and verified.
[2020-05-17] MEDS: IBUPROFEN 800 MG TAB PO PRN (12:17)
[2020-05-17 18:00] VITALS: BP 132/88
[2020-05-18 05:35] VITALS: BP 140/73
[2020-05-18] MEDS ORDERED: ACET-683 PO (07:00)
[2020-05-18] MEDS ORDERED: ANUC25SU PR (07:00)
[2020-05-18] MEDS ORDERED: IBUP80TA PO (07:00)
[2020-05-18] MEDS: PRENATAL VITAMINS CHEWABLE TABLET PO SCH (08:35)
[2020-05-18] MEDS ORDERED: ANUSOL HC 25MG SUPP PR SCH (09:00)
== END 2020-05-18 11:35 | disposition home or self-care (01) | DRG 560 ==
LOC: M LDI 01:06 → M OBS 05-17 00:11
PROVIDERS: ADMIT Specialist; ATTEND Specialist
PROC: 10E0XZZ Delivery of Products of Conception, External Approach (ICD-10-PCS; principal; 2020-05-16)
PROC: 3E033VJ Introduction of Other Hormone into Peripheral Vein, Percutaneous Approach (ICD-10-PCS; 2020-05-16)
PROC: 3E0DXGC Introduction of Other Therapeutic Substance into Mouth and Pharynx, External Approach (ICD-10-PCS; 2020-05-16)
DX: O13.4 Gestational [pregnancy-induced] hypertension without significant proteinuria, complicating childbirth (principal); O32.6XX0 Maternal care for compound presentation, not applicable or unspecified; O69.81X0 Labor and delivery complicated by cord around neck, without compression, not applicable or unspecified; Z37.0 Single live birth; Z3A.39 39 weeks gestation of pregnancy

== ENCOUNTER 2020-05-20 16:41 | Emergency (ER) | payer BC ==
[~2020-05-20] VITALS: Ht 167.6 cm; Wt 116.3 kg
[~2020-05-20 16:41] MED LIST changes: +ACET-683 PO; +ANUC25SU PR; +IBUP80TA PO
[2020-05-20 17:50] LABS: BASO % 0.3 % (0.0-1.0); EOS # 0.2 10^3/uL (0.0-0.5); EOS % 2.2 % (0.0-3.0); HEMATOCRIT 36.9 % (36.0-47.0); LYMPH # 1.7 10^3/uL (1.5-5.0); MEAN CORPUSCULAR HEMOGLOBIN 28.9 pg (27.0-33.0); MEAN CORPUSCULAR HGB CONC 32.5 g/dl (32.0-36.5); MEAN CORPUSCULAR VOLUME 88.9 fl (80.0-96.0); MONO # 0.4 10^3/uL (0.0-0.8); MONO % 4.9 % (0.0-5.0); NEUTROPHILS # 6.7 10^3/uL (1.5-8.5); NEUTROPHILS % 73.3 % (36.0-66.0); PLATELET COUNT, AUTOMATED 226 10^3/uL (150-450); RED BLOOD COUNT 4.15 10^6/uL (4.00-5.40); WHITE BLOOD COUNT 9.1 10^3/uL (4.0-10.0)
[2020-05-20] MEDS ORDERED: ISOVUE-370 76% 100ML VIAL As Ordered ONE (18:02)
[2020-05-20 18:13] LABS: ALBUMIN 2.6 GM/DL (3.2-5.2); ALT/SGPT 33 U/L (12-78); BILIRUBIN,DIRECT < 0.1 MG/DL (0.0-0.2); BILIRUBIN,TOTAL 0.3 MG/DL (0.2-1.0); BLOOD UREA NITROGEN 9 MG/DL (7-18); CALCIUM LEVEL 8.5 MG/DL (8.5-10.1); CARBON DIOXIDE LEVEL 26 MEQ/L (21-32); CHLORIDE LEVEL 110 MEQ/L (98-107); CK-MB VALUE MASS < 1.0 NG/ML (<3.6); CPK CREATINE PHOSPHOKINASE 89 U/L (26-192); CREATININE FOR GFR 0.55 MG/DL (0.55-1.30); GLOMERULAR FILTRATION RATE > 60.0 (>60); GLUCOSE, FASTING 75 MG/DL (70-100); MAGNESIUM LEVEL 1.9 MG/DL (1.8-2.4); MB/CK RELATIVE INDEX 1.12 (< OR =4); NT-PRO BNP 78 PG/ML (<125); POTASSIUM SERUM 3.8 MEQ/L (3.5-5.1); SODIUM LEVEL 144 MEQ/L (136-145); TOTAL PROTEIN 6.4 GM/DL (6.4-8.2); TROPONIN I < 0.02 NG/ML (< 0.10); URIC ACID 3.9 MG/DL (2.6-6.0)
--- NOTE | 2020-05-20 18:26 | REPVR ---
PROCEDURE INFORMATION: Exam: CT Angiography Chest With Contrast Exam date and time: 05/20/2020 6:07 PM Age: 30 years old Clinical indication: Chest pain; Additional info: RO pe TECHNIQUE: Imaging protocol: Computed tomographic angiography of the chest with intravenous contrast. 3D rendering: MIP and/or 3D reconstructed images were created by the technologist. Radiation optimization: All CT scans at this facility use at least one of these dose optimization techniques: automated exposure control; mA and/or kV adjustment per patient size (includes targeted exams where dose is matched to clinical indication); or iterative reconstruction. Contrast material: ISOVUE 370; Contrast volume: 75 ml; Contrast route: INTRAVENOUS (IV); COMPARISON: MO CT Chest without contrast 07/01/2019 11:09 AM FINDINGS: Pulmonary arteries: There are no pulmonary emboli. Aorta: There is no aortic dissection or aneurysm. Lungs: 4 mm noncalcified subpleural nodules in the right lower lobe. These are likely postinflammatory. Fleischner guidelines do not suggest any follow-up (lung rads category 2). Lungs otherwise clear. Pleural space: Unremarkable. No pneumothorax. No pleural effusion. Heart: Unremarkable. No cardiomegaly. No pericardial effusion. Lymph nodes: Unremarkable. No enlarged lymph nodes. Bones/joints: Unremarkable. No acute fracture. Soft tissues: Unremarkable. IMPRESSION: 1. There is no aortic dissection or aneurysm. 2. There are no pulmonary emboli. 3. No acute pulmonary parenchymal infiltrates. Electronically signed by: Chris Bravo On 05/20/2020 18:26:13 PM
[2020-05-20] MEDS ORDERED: LABE100T36 PO (18:43)
[2020-05-20 18:45] VITALS: BP 156/83
[2020-05-20] MEDS ORDERED: LABETALOL 100 MG TAB PO ONE (18:45)
[2020-05-20] MEDS ORDERED: BLOOKIT XX (18:46)
[2020-05-20 18:55] VITALS: BP 156/83
--- NOTE | 2020-05-20 19:23 | ECGEPIP ---
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
--- NOTE | 2020-05-21 04:24 | REP ---
AP PORTABLE CHEST: 05/20/2020. COMPARISON: 06/19/2019 CLINICAL HISTORY: Dyspnea. The patient is apparently , unknown to me. FINDINGS: The lung waddell are well inflated. There is no infiltrate, effusion, atelectasis, or mass. The heart, mediastinal and hilar contours are normal for portable technique. Airway midline. Bones unremarkable. No free air under the diaphragm. IMPRESSION: 1. Negative AP portable chest. No acute cardiopulmonary change. Electronically Signed by Saad Amaya MD 05/21/2020 08:55 A
== END 2020-05-20 18:58 | disposition home or self-care (01) ==
LOC: M ED 16:41
DX: I10 Essential (primary) hypertension (principal); Z79.899 Other long term (current) drug therapy; Z88.0 Allergy status to penicillin; Z88.8 Allergy status to other drugs, medicaments and biological substances
CPT/HCPCS: 71045; 71275; 80047; 80048; 80076; 81001; 82550; 82553; 83735; 83880; 84484; 84550; 85025; 87086; 93005; 93041; 94760; 99285; Q9967

== ENCOUNTER → 2020-11-21 | Outpatient (CLI) | payer BC ==
[~2020-11-21] MED LIST changes: +BLOOKIT XX; -CLIN150C14 PO; +CLIN150C15 PO; +LABE100T36 PO
[2020-11-21 13:27] LABS: ALBUMIN 3.7 GM/DL (3.2-5.2); ALT/SGPT 38 U/L (12-78); BILIRUBIN,TOTAL 0.4 MG/DL (0.2-1.0); BLOOD UREA NITROGEN 15 MG/DL (7-18); CALCIUM LEVEL 9.4 MG/DL (8.5-10.1); CARBON DIOXIDE LEVEL 27 MEQ/L (21-32); CHLORIDE LEVEL 105 MEQ/L (98-107); CHOLESTEROL LEVEL 146 MG/DL (<200); CHOLESTEROL RISK RATIO 2.281 (<5); CREATININE FOR GFR 0.58 MG/DL (0.55-1.30); GLOMERULAR FILTRATION RATE > 60.0 (>60); GLUCOSE, FASTING 87 MG/DL (70-100); HDL CHOLESTEROL 64 MG/DL (>40); LDL CHOLESTEROL 68 MG/DL (<100); NON-HDL-C 82 MG/DL; POTASSIUM SERUM 4.3 MEQ/L (3.5-5.1); SODIUM LEVEL 139 MEQ/L (136-145); TOTAL PROTEIN 6.9 GM/DL (6.4-8.2); TRIGLYCERIDES LEVEL 70 MG/DL (<150)
== END ==
LOC: M LAB 10:18
PROVIDERS: ATTEND Nurse Practitioner Family
DX: E78.1 Pure hyperglyceridemia (principal)

== ENCOUNTER → 2020-11-26 | Outpatient (CLI) | payer SELFPAY | LOC: M LABSMTC 13:06 | PROVIDERS: ATTEND Pediatrics | DX: Z20.822 Contact with and (suspected) exposure to COVID-19 (principal) ==

== ENCOUNTER → 2020-12-01 | Outpatient (REF) | payer SELFPAY | LOC: EDSTATUS 09:30 → M LABSMTC 10:05 → M LABCAHC 10:05 | PROVIDERS: ATTEND Pediatrics | DX: Z20.822 Contact with and (suspected) exposure to COVID-19 (principal) ==

== ENCOUNTER → 2021-05-28 | Outpatient (CLI) | payer BC ==
[~2021-05-28] MED LIST changes: +EMTR1TAB16 PO; -LABE100T36 PO; +LABE100T5 PO; -TRUVTAB PO
[2021-05-28 16:18] LABS: BASO % 0.3 % (0.0-1.0); EOS # 0.1 10^3/uL (0.0-0.5); HEMOGLOBIN 13.2 g/dl (12.0-15.5); LYMPH # 2.5 10^3/uL (1.5-5.0); LYMPH % 27.6 % (24.0-44.0); MEAN CORPUSCULAR HEMOGLOBIN 29.1 pg (27.0-33.0); MEAN CORPUSCULAR HGB CONC 33.8 g/dl (32.0-36.5); MEAN CORPUSCULAR VOLUME 85.9 fl (80.0-96.0); MONO # 0.5 10^3/uL (0.0-0.8); MONO % 5.7 % (2.0-8.0); NEUTROPHILS # 5.8 10^3/uL (1.5-8.5); NEUTROPHILS % 65.1 % (36.0-66.0); PLATELET COUNT, AUTOMATED 254 10^3/uL (150-450); RED BLOOD COUNT 4.54 10^6/uL (4.00-5.40); WHITE BLOOD COUNT 8.9 10^3/uL (4.0-10.0)
[2021-05-28 16:56] LABS: C REACTIVE PROTEIN QUANTITATIV 2.27 MG/DL (0.00-0.30); CHOLESTEROL LEVEL 164 MG/DL (<200); CHOLESTEROL RISK RATIO 2.342 (<5); FERRITIN 39 NG/ML (8-252); HDL CHOLESTEROL 70 MG/DL (>40); IRON (FE) 43 UG/DL (50-170); LDL CHOLESTEROL 72 MG/DL (<100); NON-HDL-C 94 MG/DL; PERCENT SATURATION 12.1 % (13.2-45.0); RHEUMATOID FACTOR QUANT < 10.0 IU/ML (<15.0); TOTAL IRON BINDING CAPACITY 355 UG/DL (250-450); TRIGLYCERIDES LEVEL 111 MG/DL (<150)
--- NOTE | 2021-05-28 16:57 | REP ---
INDICATION: OTHER FATIGUE. COMPARISON: None. TECHNIQUE: Five views lumbosacral spine. FINDINGS: There is no compression fracture or malalignment. There is normal lumbar lordosis. There is mild disc space narrowing and subchondral sclerosis at L5-S1, with sclerosis at the facet joints at that level.. Posterior elements are intact. IMPRESSION: Mild degenerative changes L5-S1. <Electronically signed by Davidson Stokes > 05/28/21 [id number]
[2021-05-28 17:00] LABS: ERYTHROCYTE SEDIMENTATION RATE 24 mm/hr (0-20)
[2021-05-28 17:18] LABS: TOTAL 25(OH) VITAMIN D 23.6 NG/ML (30.0-100.0)
[2021-05-28 17:19] LABS: THYROGLOBULIN ANTIBODY > 500.0 U/ML (<60.0); VITAMIN B12 LEVEL 587 PG/ML
[2021-05-28 17:20] LABS: FOLATE 9.9 NG/ML
[2021-05-28 17:30] LABS: HEMOGLOBIN A1c 5.2 %
== END ==
LOC: M LAB 15:36
PROVIDERS: ATTEND Nurse Practitioner Family
DX: R53.83 Other fatigue (principal)

== ENCOUNTER 2021-07-06 20:55 | Emergency (ER) | payer BC ==
[~2021-07-06] VITALS: Ht 167.6 cm; Wt 104.6 kg
[~2021-07-06 20:55] MED LIST changes: -CLIN150C15 PO; +CLIN150C17 PO
[2021-07-06] MEDS ORDERED: predniSONE 20 MG TAB PO ONE (21:50)
--- NOTE | 2021-07-06 23:08 | REPVR ---
PROCEDURE INFORMATION: Exam: CT Lumbar Spine Without Contrast Exam date and time: 07/06/2021 10:08 PM Age: 31 years old Clinical indication: Other: Chronic back pain, right sided with anteriorhip radiation TECHNIQUE: Imaging protocol: Computed tomography images of the lumbar spine without contrast. Radiation optimization: All CT scans at this facility use at least one of these dose optimization techniques: automated exposure control; mA and/or kV adjustment per patient size (includes targeted exams where dose is matched to clinical indication); or iterative reconstruction. COMPARISON: CR Spine. Lumbosacral, complete 05/28/2021 4:01 PM FINDINGS: Vertebrae: No acute fracture. Normal alignment. L1-L2: No significant disc protrusion. No severe spinal canal stenosis. No significant neural foraminal narrowing. L2-L3: No significant disc protrusion. No severe spinal canal stenosis. No significant neural foraminal narrowing. L3-L4: Mild disc bulge. No spinal canal stenosis. No neural foraminal narrowing. L4-L5: Mild disc spinal canal stenosis. Mild bilateral neural narrowing. L5-S1: Disc bulge. No spinal canal stenosis. Mild bilateral neural foraminal narrowing. Soft tissues: Unremarkable. IMPRESSION: No acute abnormality. Degenerative disc disease at L4-L5 and L5-S1 with mild bilateral neural foraminal narrowing. Electronically signed by: Dariel Wallace On 07/06/2021 23:08:00 PM
--- NOTE | 2021-07-06 23:10 | REPVR ---
PROCEDURE INFORMATION: Exam: CT Pelvis Without Contrast; Skeletal Exam date and time: 07/06/2021 10:08 PM Age: 31 years old Clinical indication: Other: Chronic back pain, right sided with anteriorhip radiation TECHNIQUE: Imaging protocol: Computed tomography images of the pelvis without contrast. Exam focused on the skeletal structures. Radiation optimization: All CT scans at this facility use at least one of these dose optimization techniques: automated exposure control; mA and/or kV adjustment per patient size (includes targeted exams where dose is matched to clinical indication); or iterative reconstruction. COMPARISON: CR Spine. Lumbosacral, complete 05/28/2021 4:01 PM FINDINGS: Bones/joints: Unremarkable. No acute fracture. No dislocation. Soft tissues: Unremarkable. IMPRESSION: No acute findings. Electronically signed by: Dariel Wallace On 07/06/2021 23:09:48 PM
[2021-07-06] MEDS ORDERED: PRED20TA PO (23:45)
[2021-07-07 00:03] VITALS: BP 139/76
== END 2021-07-07 00:04 | disposition home or self-care (01) ==
LOC: M ED 20:55
DX: M51.16 Intervertebral disc disorders with radiculopathy, lumbar region (principal); M48.061 Spinal stenosis, lumbar region without neurogenic claudication; Z79.899 Other long term (current) drug therapy
CPT/HCPCS: 72131; 72192; 99283; J7512

== ENCOUNTER → 2021-07-09 | Outpatient (REF) | LOC: M EMP 07:36 | PROVIDERS: ATTEND Family Medicine | DX: Z20.822 Contact with and (suspected) exposure to COVID-19 (principal) ==

== ENCOUNTER 2021-07-14 07:20 | Emergency (ER) | payer BC ==
[~2021-07-14] VITALS: Ht 167.6 cm; Wt 102.7 kg
[2021-07-14] MEDS ORDERED: NS 1,000 ML IV ONE (08:00)
[2021-07-14 08:31] LABS: BASO % 0.2 % (0.0-1.0); HEMATOCRIT 42.9 % (36.0-47.0); HEMOGLOBIN 14.2 g/dl (12.0-15.5); LYMPH # 1.1 10^3/uL (1.5-5.0); LYMPH % 12.2 % (24.0-44.0); MEAN CORPUSCULAR HEMOGLOBIN 28.9 pg (27.0-33.0); MEAN CORPUSCULAR HGB CONC 33.1 g/dl (32.0-36.5); MEAN CORPUSCULAR VOLUME 87.4 fl (80.0-96.0); MONO # 0.3 10^3/uL (0.0-0.8); MONO % 3.1 % (2.0-8.0); NEUTROPHILS # 7.4 10^3/uL (1.5-8.5); NEUTROPHILS % 83.8 % (36.0-66.0); PLATELET COUNT, AUTOMATED 277 10^3/uL (150-450); RED BLOOD COUNT 4.91 10^6/uL (4.00-5.40); WHITE BLOOD COUNT 8.8 10^3/uL (4.0-10.0)
[2021-07-14 09:09] LABS: ALBUMIN 3.5 GM/DL (3.2-5.2); ALT/SGPT 47 U/L (12-78); BILIRUBIN,TOTAL 0.2 MG/DL (0.2-1.0); BLOOD UREA NITROGEN 15 MG/DL (7-18); CALCIUM LEVEL 8.8 MG/DL (8.5-10.1); CARBON DIOXIDE LEVEL 26 MEQ/L (21-32); CHLORIDE LEVEL 109 MEQ/L (98-107); CREATININE FOR GFR 0.65 MG/DL (0.55-1.30); FERRITIN 39 NG/ML (8-252); FREE T3 2.8 PG/ML (2.2-4.0); FREE T4 0.87 NG/DL (0.76-1.46); GLOMERULAR FILTRATION RATE > 60.0 (>60); GLUCOSE, FASTING 154 MG/DL (70-100); IRON (FE) 104 UG/DL (50-170); PERCENT SATURATION 29.5 % (13.2-45.0); SODIUM LEVEL 141 MEQ/L (136-145); THYROID STIMULATING HORMONE 0.489 uIU/ML (0.358-3.740); TOTAL IRON BINDING CAPACITY 352 UG/DL (250-450); TOTAL PROTEIN 7.2 GM/DL (6.4-8.2)
--- NOTE | 2021-07-14 09:52 | REP ---
INDICATION: sob. COMPARISON: Portable chest, 05/20/2020. TECHNIQUE: Upright PA and lateral images of the chest were obtained. FINDINGS: There is bilateral perihilar peribronchial consolidation consistent with viral pneumonia or acute bronchitis. There is no lobar consolidation or pleural effusion. The heart borders and mediastinum are normal. The upper abdominal bowel gas pattern is normal. There are no bony abnormalities of chest. IMPRESSION: Findings consistent with viral pneumonia or acute bronchitis. <Electronically signed by David Campo > 07/14/21 [id number]
[2021-07-14 10:15] VITALS: BP 133/89
[2021-07-15 10:23] LABS: TOTAL 25(OH) VITAMIN D 28.8 NG/ML (30.0-100.0)
--- NOTE | 2021-07-15 16:43 | ECGEPIP ---
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
== END 2021-07-14 10:17 | disposition home or self-care (01) ==
LOC: M ED 07:20
DX: J06.9 Acute upper respiratory infection, unspecified (principal); R00.2 Palpitations; J45.909 Unspecified asthma, uncomplicated; Z88.1 Allergy status to other antibiotic agents; Z88.8 Allergy status to other drugs, medicaments and biological substances; Z79.899 Other long term (current) drug therapy
CPT/HCPCS: 36415; 71046; 80053; 82306; 82728; 83550; 83735; 84439; 84443; 84481; 85025; 93005; 96360; 96361; 99284; U0003

== ENCOUNTER → 2021-07-26 | Outpatient (CLI) | payer BC ==
--- NOTE | 2021-07-27 23:35 | REPVR ---
PROCEDURE INFORMATION: Exam: MR Lumbar Spine Without Contrast Exam date and time: 07/26/2021 12:37 PM Age: 31 years old Clinical indication: Low back pain; Additional info: Lbp TECHNIQUE: Imaging protocol: Multiplanar magnetic resonance images of the lumbar spine without intravenous contrast. COMPARISON: CT Spine, lumbar w/o contrast 07/06/2021 9:48 PM FINDINGS: Vertebral body heights are maintained. Anatomic partial lumbarization of S1. No abnormal marrow signal. No cord compression. No abnormal cord signal. Conus medullaris terminates at the L1 level. Paravertebral soft tissues are unremarkable. L1-L2: No significant canal or foraminal narrowing. L2-L3: No significant canal or foraminal narrowing. L3-L4: No significant canal or foraminal narrowing. L4-L5: Broad-based disc bulge and facet hypertrophy cause mild bilateral foraminal narrowing. No significant canal narrowing. L5-S1: Broad-based disc bulge and facet hypertrophy cause mild bilateral foraminal narrowing. No significant canal narrowing. IMPRESSION: 1. No acute findings in the lumbar spine. 2. Mild spondylotic changes of the lower lumbar spine, as detailed above. Electronically signed by: Geovanny Andino On 07/27/2021 23:34:42 PM
== END ==
LOC: M RAD 11:22
PROVIDERS: ATTEND Nurse Practitioner Family
DX: M51.26 Other intervertebral disc displacement, lumbar region (principal); M51.27 Other intervertebral disc displacement, lumbosacral region; M47.816 Spondylosis without myelopathy or radiculopathy, lumbar region; R20.8 Other disturbances of skin sensation; R93.7 Abnormal findings on diagnostic imaging of other parts of musculoskeletal system; M89.8X9 Other specified disorders of bone, unspecified site

== ENCOUNTER → 2021-07-30 | Outpatient (CLI) | payer BC ==
--- NOTE | 2021-07-30 12:31 | REP ---
INDICATION: ABN THYROID RESULTS. COMPARISON: None. TECHNIQUE: Real-time sonographic evaluation of thyroid performed. FINDINGS: Right lobe measures 4.7 x 1.9 x 1.4 cm and left lobe 4.1 x 1.3 x 1.5 cm. No discrete cystic or solid nodule is seen. With Doppler evaluation the right lobe appears mildly hyperemic. IMPRESSION: Mild hyperemia right lobe of thyroid without a discrete cystic or solid nodule. <Electronically signed by Davidson Stokes > 07/30/21 [id number]
== END ==
LOC: M RAD 11:56
PROVIDERS: ATTEND Nurse Practitioner Family
DX: R93.7 Abnormal findings on diagnostic imaging of other parts of musculoskeletal system (principal); M54.5 Low back pain; R20.8 Other disturbances of skin sensation; M89.8X9 Other specified disorders of bone, unspecified site; R76.8 Other specified abnormal immunological findings in serum

== ENCOUNTER 2021-08-10 06:07 | Emergency (ER) | payer BC ==
[~2021-08-10] VITALS: Ht 167.6 cm; Wt 102.3 kg
[~2021-08-10 06:07] MED LIST changes: -CEFD1CAP8 PO; +CEFD300C41 PO
[2021-08-10] MEDS ORDERED: MOBI15TA PO (06:16)
[2021-08-10] MEDS ORDERED: VYVA30CA4 PO (06:16)
[2021-08-10] MEDS ORDERED: COMBAER6 INH (06:16)
[2021-08-10] MEDS ORDERED: DIPH50CA PO (06:16)
[2021-08-10] MEDS ORDERED: diphenhydrAMINE 50MG/ML VIAL (J1200) IV STA (06:36)
[2021-08-10] MEDS ORDERED: methylPREDNISolone 125MG 2ML VIAL IV ONE (06:40)
[2021-08-10] MEDS ORDERED: FAMOTIDINE IV BAG 20 MG in IV 1 EA IV ONE (06:40)
[2021-08-10] MEDS ORDERED: EPINEPHrine INJ 1 MG/ML 1ML AMP IM STA (06:58)
[2021-08-10 11:07] VITALS: BP 134/79
[2021-11-27] MEDS ORDERED: PRED20TA PO (02:25)
== END 2021-08-10 11:13 | disposition home or self-care (01) ==
LOC: M ED 06:07
DX: T78.2XXA Anaphylactic shock, unspecified, initial encounter (principal); R22.0 Localized swelling, mass and lump, head; R21 Rash and other nonspecific skin eruption; J45.909 Unspecified asthma, uncomplicated; F90.9 Attention-deficit hyperactivity disorder, unspecified type; F17.200 Nicotine dependence, unspecified, uncomplicated; Z88.1 Allergy status to other antibiotic agents; Z88.8 Allergy status to other drugs, medicaments and biological substances; Z79.899 Other long term (current) drug therapy
CPT/HCPCS: 93041; 94760; 96372; 96375; 99285; J0171; J1200; J2930

== ENCOUNTER → 2021-09-13 | Outpatient (CLI) | payer BC ==
[~2021-09-13] MED LIST changes: +CEFD1CAP8 PO; -CEFD300C41 PO; +COMBAER6 INH; +DIPH50CA PO; +MOBI15TA PO; +VYVA30CA4 PO
== END ==
LOC: M WHC 15:00
PROVIDERS: ATTEND Advanced Practice Midwife
DX: Z53.20 Procedure and treatment not carried out because of patient's decision for unspecified reasons (principal)

== ENCOUNTER → 2021-09-13 | Outpatient (REF) | payer BC | LOC: M SFHCWAGY 17:09 | PROVIDERS: ATTEND Advanced Practice Midwife | DX: Z12.4 Encounter for screening for malignant neoplasm of cervix (principal) | CPT/HCPCS: 87624; G0123 ==

== ENCOUNTER → 2021-09-24 | Outpatient (REF) | LOC: M EMP 09:49 | PROVIDERS: ATTEND Family Medicine | DX: Z20.822 Contact with and (suspected) exposure to COVID-19 (principal) ==

== ENCOUNTER → 2021-09-27 | Outpatient (REF) | LOC: M LABSMTC 10:13 | PROVIDERS: ATTEND Pediatrics | DX: Z20.822 Contact with and (suspected) exposure to COVID-19 (principal) ==

== ENCOUNTER → 2021-10-14 | Outpatient (REF) | LOC: M LABSMTC 09:47 | PROVIDERS: ATTEND Family Medicine | DX: Z20.822 Contact with and (suspected) exposure to COVID-19 (principal) ==

== ENCOUNTER → 2021-10-25 | Outpatient (CLI) | payer BC ==
[~2021-10-25] MED LIST changes: -CEFD1CAP8 PO; +CEFD300C41 PO
== END ==
LOC: M RAD 10:27
PROVIDERS: ATTEND Advanced Practice Midwife
DX: N92.0 Excessive and frequent menstruation with regular cycle (principal)

== ENCOUNTER → 2021-11-11 | Outpatient (REF) ==
[~2021-11-11] MED LIST changes: +CEFD1CAP8 PO; -CEFD300C41 PO
== END ==
LOC: M LABSMTC 10:22
PROVIDERS: ATTEND Family Medicine
DX: Z20.822 Contact with and (suspected) exposure to COVID-19 (principal)

== ENCOUNTER → 2021-12-04 | Outpatient (CLI) | payer BC ==
[~2021-12-04] MED LIST changes: -CEFD1CAP8 PO; +CEFD300C41 PO
[2021-12-04 19:05] LABS: HEMATOCRIT 41.6 % (36.0-47.0); MEAN CORPUSCULAR HEMOGLOBIN 28.5 pg (27.0-33.0); MEAN CORPUSCULAR HGB CONC 33.7 g/dl (32.0-36.5); MEAN CORPUSCULAR VOLUME 84.6 fl (80.0-96.0); PLATELET COUNT, AUTOMATED 290 10^3/uL (150-450); RED BLOOD COUNT 4.92 10^6/uL (4.00-5.40); WHITE BLOOD COUNT 13.1 10^3/uL (4.0-10.0)
== END ==
LOC: M LAB 18:48
PROVIDERS: ATTEND Advanced Practice Midwife
DX: R42 Dizziness and giddiness (principal)

== ENCOUNTER → 2022-03-05 | Outpatient (REF) | payer BC | LOC: M PLALAB 12:22 | PROVIDERS: ATTEND Advanced Practice Midwife | DX: N92.0 Excessive and frequent menstruation with regular cycle (principal) ==

== ENCOUNTER → 2022-03-12 | Outpatient (REF) | LOC: M LABSMTC 10:46 | PROVIDERS: ATTEND Family Medicine | DX: Z00.00 Encounter for general adult medical examination without abnormal findings (principal) ==

== ENCOUNTER → 2022-05-20 | Outpatient (REF) ==
[~2022-05-20] MED LIST changes: +ALBU2.5V10 INH; -ALBU83IN INH
== END ==
LOC: M EMP 09:31
PROVIDERS: ATTEND Family Medicine
DX: Z11.52 Encounter for screening for COVID-19 (principal)

== ENCOUNTER 2022-07-19 21:22 | Emergency (ER) | payer BC ==
[~2022-07-19] VITALS: Ht 167.6 cm; Wt 91.1 kg
[~2022-07-19 21:22] MED LIST changes: -LABE100T5 PO; +LABE100T71 PO
[2022-07-19 21:23] VITALS: BP 163/92
[2022-07-19] MEDS ORDERED: IBUP-1114 PO (21:36)
[2022-07-19] MEDS ORDERED: steroid cream TOP (21:36)
[2022-07-19] MEDS ORDERED: CETIRIZINE (ZyrTEC) 10 MG TAB PO ONE (22:45)
[2022-07-19] MEDS ORDERED: CETI10CA2 PO (22:54)
== END 2022-07-19 22:59 | disposition home or self-care (01) ==
LOC: M ED 21:22
DX: S70.362A Insect bite (nonvenomous), left thigh, initial encounter (principal); T63.441A Toxic effect of venom of bees, accidental (unintentional), initial encounter; J45.909 Unspecified asthma, uncomplicated; F90.9 Attention-deficit hyperactivity disorder, unspecified type; Z88.1 Allergy status to other antibiotic agents; Z88.8 Allergy status to other drugs, medicaments and biological substances; Z79.899 Other long term (current) drug therapy

== ENCOUNTER → 2022-07-24 | Outpatient (CLI) | payer BC ==
[~2022-07-24] MED LIST changes: +CETI10CA2 PO; +IBUP-1114 PO; +steroid cream TOP
== END ==
LOC: M CARPUL 10:02
PROVIDERS: ATTEND Internal Medicine Pulmonary Disease
DX: R06.00 Dyspnea, unspecified (principal)

== ENCOUNTER → 2022-08-12 | Outpatient (REF) | payer BC | LOC: M LAB REF 09:52 | PROVIDERS: ATTEND Internal Medicine Pulmonary Disease | DX: J20.9 Acute bronchitis, unspecified (principal) ==

== ENCOUNTER → 2022-10-09 | Outpatient (CLI) | payer BC ==
[~2022-10-09] MED LIST changes: +METHACHOLINE KIT INH ONE
== END ==
LOC: M CARPUL 10:55
PROVIDERS: ATTEND Internal Medicine Pulmonary Disease
DX: R06.00 Dyspnea, unspecified (principal)
CPT/HCPCS: 94070; J7674

== ENCOUNTER 2022-10-28 22:30 | Emergency (ER) | payer BC ==
[~2022-10-28] VITALS: Ht 167.6 cm; Wt 88.6 kg
[~2022-10-28 22:30] MED LIST changes: -METHACHOLINE KIT INH ONE
[2022-10-28 23:03] VITALS: BP 140/82
[2022-10-28] MEDS ORDERED: SPIR12.9 (23:04)
[2022-10-28] MEDS ORDERED: SYMB16INH (23:04)
[2022-10-28 23:43] LABS: BASO % 0.4 % (0.0-1.0); EOS # 0.1 10^3/uL (0.0-0.5); EOS % 0.8 % (0.0-3.0); HEMATOCRIT 38.9 % (36.0-47.0); HEMOGLOBIN 13.2 g/dl (12.0-15.5); LYMPH # 2.8 10^3/uL (1.5-5.0); LYMPH % 24.9 % (24.0-44.0); MEAN CORPUSCULAR HEMOGLOBIN 29.9 pg (27.0-33.0); MEAN CORPUSCULAR HGB CONC 33.9 g/dl (32.0-36.5); MONO # 0.8 10^3/uL (0.0-0.8); MONO % 7.1 % (2.0-8.0); NEUTROPHILS # 7.5 10^3/uL (1.5-8.5); NEUTROPHILS % 66.5 % (36.0-66.0); PLATELET COUNT, AUTOMATED 243 10^3/uL (150-450); RED BLOOD COUNT 4.42 10^6/uL (4.00-5.40); WHITE BLOOD COUNT 11.2 10^3/uL (4.0-10.0)
[2022-10-29 00:11] LABS: ALBUMIN 3.6 G/DL (3.2-5.2); ALKALINE PHOSPHATASE 74 U/L (46-116); ALT/SGPT 29 U/L (7.0-40); AST/SGOT 29 U/L (<34); BILIRUBIN,TOTAL 0.4 MG/DL (0.3-1.2); BLOOD UREA NITROGEN 16 MG/DL (9-23); CALCIUM LEVEL 8.7 MG/DL (8.5-10.1); CARBON DIOXIDE LEVEL 26 MMOL/L (20-31); CHLORIDE LEVEL 110 MMOL/L (98-107); CREATININE FOR GFR 0.66 MG/DL (0.55-1.30); GLOMERULAR FILTRATION RATE > 60.0 (>60); GLUCOSE, FASTING 82 MG/DL (60-100); POTASSIUM SERUM 4.3 MMOL/L (3.5-5.1); SODIUM LEVEL 143 MMOL/L (136-145); TOTAL PROTEIN 6.4 G/DL (5.7-8.2)
[2022-10-29 00:13] LABS: HEPATITIS B SURFACE ANTIBODY POSITIVE (POSITIVE)
[2022-10-29 00:25] LABS: HEPATITIS B SURFACE ANTIGEN NEGATIVE (NEGATIVE)
[2022-10-29 00:38] LABS: HIV SCREEN CENTAUR EXPOSED NEGATIVE (NEGATIVE)
[2022-10-29 00:47] LABS: HEPATITIS C VIRUS ABY INDEX 0.1 INDEX (<0.8)
[2022-10-29 00:49] LABS: HCG, SERUM QUALITATIVE NEGATIVE (NEGATIVE)
== END 2022-10-29 00:55 | disposition home or self-care (01) ==
LOC: M ED 22:30
DX: Z77.21 Contact with and (suspected) exposure to potentially hazardous body fluids (principal); Y92.238 Other place in hospital as the place of occurrence of the external cause; Y99.0 Civilian activity done for income or pay; J45.909 Unspecified asthma, uncomplicated; Z79.899 Other long term (current) drug therapy; Z88.0 Allergy status to penicillin; Z88.8 Allergy status to other drugs, medicaments and biological substances

== ENCOUNTER → 2022-10-30 | Outpatient (REF) ==
[~2022-10-30] MED LIST changes: +SPIR12.9; +SYMB16INH
[2022-10-30 15:54] LABS: RSV AMPLIFICATION NEGATIVE (NEGATIVE)
== END ==
LOC: M EMP 13:22
PROVIDERS: ATTEND Family Medicine
DX: Z20.818 Contact with and (suspected) exposure to other bacterial communicable diseases (principal)

== ENCOUNTER 2023-01-05 14:11 | Emergency (ER) | payer BC ==
[~2023-01-05] VITALS: Ht 167.6 cm; Wt 91.4 kg
[~2023-01-05 14:11] MED LIST changes: +MONT-5 PO; -SING10TA32 PO
[2023-01-05 14:12] VITALS: BP 128/85
== END 2023-01-05 16:28 | disposition home or self-care (01) ==
LOC: M ED 14:11
DX: N83.202 Unspecified ovarian cyst, left side (principal); K59.00 Constipation, unspecified; J45.909 Unspecified asthma, uncomplicated; Z88.1 Allergy status to other antibiotic agents; Z88.8 Allergy status to other drugs, medicaments and biological substances; Z79.52 Long term (current) use of systemic steroids; Z79.51 Long term (current) use of inhaled steroids; Z79.899 Other long term (current) drug therapy

== ENCOUNTER → 2023-02-10 | Outpatient (CLI) | payer BC ==
[2023-02-10 12:11] LABS: BASO % 0.6 % (0.0-1.0); EOS # 0.1 10^3/uL (0.0-0.5); EOS % 0.7 % (0.0-3.0); HEMATOCRIT 39.2 % (36.0-47.0); LYMPH # 2.1 10^3/uL (1.5-5.0); LYMPH % 31.3 % (24.0-44.0); MEAN CORPUSCULAR HEMOGLOBIN 29.5 pg (27.0-33.0); MEAN CORPUSCULAR HGB CONC 33.2 g/dl (32.0-36.5); MEAN CORPUSCULAR VOLUME 88.9 fl (80.0-96.0); MONO # 0.5 10^3/uL (0.0-0.8); MONO % 6.6 % (2.0-8.0); NEUTROPHILS # 4.1 10^3/uL (1.5-8.5); NEUTROPHILS % 60.7 % (36.0-66.0); PLATELET COUNT, AUTOMATED 249 10^3/uL (150-450); RED BLOOD COUNT 4.41 10^6/uL (4.00-5.40); WHITE BLOOD COUNT 6.8 10^3/uL (4.0-10.0)
[2023-02-10 12:33] LABS: ERYTHROCYTE SEDIMENTATION RATE 12 mm/hr (0-20)
[2023-02-10 12:36] LABS: RHEUMATOID FACTOR QUANT 5.2 IU/ML (<14)
[2023-02-10 14:40] LABS: ALBUMIN 3.7 G/DL (3.2-5.2); ALKALINE PHOSPHATASE 74 U/L (46-116); ALT/SGPT 30 U/L (7.0-40); AST/SGOT 20 U/L (<34); BILIRUBIN,TOTAL 0.5 MG/DL (0.3-1.2); BLOOD UREA NITROGEN 12 MG/DL (9-23); CALCIUM LEVEL 8.7 MG/DL (8.5-10.1); CARBON DIOXIDE LEVEL 27 MMOL/L (20-31); CHLORIDE LEVEL 107 MMOL/L (98-107); CREATININE FOR GFR 0.55 MG/DL (0.55-1.30); GLOMERULAR FILTRATION RATE > 60.0 (>60); GLUCOSE, FASTING 85 MG/DL (60-100); POTASSIUM SERUM 3.8 MMOL/L (3.5-5.1); SODIUM LEVEL 138 MMOL/L (136-145); THYROID PEROXIDASE ANTIBODY < 28.0 U/ML (<60.0); THYROID STIMULATING HORMONE 1.189 uIU/ML (0.55-4.78); THYROXINE (T4) 7.9 UG/DL (4.5-10.9); TOTAL PROTEIN 6.5 G/DL (5.7-8.2); TOTAL T3 124.2 NG/DL (60.0-181.0)
== END ==
LOC: M LAB 11:25
PROVIDERS: ATTEND Allergy & Immunology Allergy
DX: L50.1 Idiopathic urticaria (principal)

== ENCOUNTER 2023-02-21 21:05 | Emergency (ER) | payer BC ==
[~2023-02-21] VITALS: Ht 167.6 cm; Wt 93.2 kg
[2023-02-21] MEDS ORDERED: LEVOTAB10 PO (21:20)
[2023-02-21] MEDS ORDERED: DIPH-435 PO (21:20)
[2023-02-21] MEDS ORDERED: COMBAER6 INH (21:20)
[2023-02-22 01:26] VITALS: BP 145/84
== END 2023-02-22 01:36 | disposition home or self-care (01) ==
LOC: M ED 21:05
DX: S80.02XA Contusion of left knee, initial encounter (principal); W01.0XXA Fall on same level from slipping, tripping and stumbling without subsequent striking against object, initial encounter; J45.909 Unspecified asthma, uncomplicated; F90.9 Attention-deficit hyperactivity disorder, unspecified type; Y92.009 Unspecified place in unspecified non-institutional (private) residence as the place of occurrence of the external cause; Z88.1 Allergy status to other antibiotic agents; Z88.8 Allergy status to other drugs, medicaments and biological substances; Z79.52 Long term (current) use of systemic steroids; Z79.899 Other long term (current) drug therapy

== ENCOUNTER 2023-03-19 11:34 | Emergency (ER) | payer BC ==
[~2023-03-19] VITALS: Ht 167.6 cm; Wt 90.0 kg
[~2023-03-19 11:34] MED LIST changes: +DIPH-435 PO; +ETON1VAG7 VA; +LEVOTAB10 PO; -NUVAMIS2 VA
[2023-03-19 12:59] VITALS: BP 137/85
== END 2023-03-19 13:01 | disposition home or self-care (01) ==
LOC: M ED 11:34
DX: J45.909 Unspecified asthma, uncomplicated (principal); F90.9 Attention-deficit hyperactivity disorder, unspecified type; Z88.1 Allergy status to other antibiotic agents; Z88.8 Allergy status to other drugs, medicaments and biological substances; Z79.52 Long term (current) use of systemic steroids; Z79.899 Other long term (current) drug therapy

== ENCOUNTER → 2023-04-17 | Outpatient (CLI) | payer BC ==
[2023-04-17 13:51] LABS: HEMATOCRIT 40.5 % (36.0-47.0); HEMOGLOBIN 13.5 g/dl (12.0-15.5); MEAN CORPUSCULAR HEMOGLOBIN 29.3 pg (27.0-33.0); MEAN CORPUSCULAR HGB CONC 33.3 g/dl (32.0-36.5); PLATELET COUNT, AUTOMATED 236 10^3/uL (150-450); WHITE BLOOD COUNT 6.9 10^3/uL (4.0-10.0)
== END ==
LOC: M PLALAB 12:04
PROVIDERS: ATTEND Obstetrics & Gynecology
DX: N93.9 Abnormal uterine and vaginal bleeding, unspecified (principal)

== ENCOUNTER → 2023-04-17 | Outpatient (CLI) | payer BC | LOC: M WHC 10:49 | PROVIDERS: ATTEND Obstetrics & Gynecology | DX: N93.9 Abnormal uterine and vaginal bleeding, unspecified (principal) ==

== ENCOUNTER → 2023-07-29 | Outpatient (REF) | payer BC ==
[~2023-07-29] MED LIST changes: +VALA1TAB5 PO
[2023-07-29 21:19] LABS: HIV 1&2 SCREEN NEGATIVE (NEGATIVE)
[2023-07-29 21:27] LABS: HEPATITIS C VIRUS ABY INDEX 0.04 INDEX (<0.8)
== END ==
LOC: M LAB REF 20:03
PROVIDERS: ATTEND Internal Medicine Infectious Disease
DX: Z20.5 Contact with and (suspected) exposure to viral hepatitis (principal)

== ENCOUNTER → 2023-08-31 | Outpatient (REF) | payer BC ==
[~2023-08-31] MED LIST changes: +ALBU8.5H INH; -CEFD300C41 PO; +CEFD300C42 PO; +CLIN1GEL37 TOP; +LISD20CA PO; +LISD50CA PO; -SPIR12.9; +SPIR12.9 INH; -SYMB16INH; +SYMB16INH INH; +VYVA20CA PO; +VYVA50CA4 PO
== END ==
LOC: M SFHCWAGY 10:27
PROVIDERS: ATTEND Obstetrics & Gynecology
DX: N85.8 Other specified noninflammatory disorders of uterus (principal)

== ENCOUNTER → 2023-09-02 | Outpatient (CLI) | payer BC ==
[~2023-09-02] MED LIST changes: +COLA100C5 PO
[2023-09-02 11:18] LABS: LIPASE 39 U/L (12-53)
[2023-09-02 11:20] LABS: AMYLASE 45 U/L (30-118)
== END ==
LOC: M LAB 09:24
PROVIDERS: ATTEND Physician Assistant Medical
DX: R10.12 Left upper quadrant pain (principal); R10.13 Epigastric pain; R14.0 Abdominal distension (gaseous)

== ENCOUNTER 2023-09-14 07:38 | Observation (INO) | payer BC ==
[2023-09-14] VITALS (9 sets, daily range): BP systolic 100–112; BP diastolic 53–64; TEMP 96.3–98.4; O2SAT 97–99
[~2023-09-14] VITALS: Ht 167.6 cm; Wt 98.4 kg
[~2023-09-14 07:38] MED LIST changes: -COLA100C5 PO; +LIDOCAINE 2% 100MG/5ML SDV (FOR ANES.) As Ordered ONE; +METHYLENE BLUE 0.5% (5MG/ML) 10 ML AMP (PROVAYBLUE) As Ordered ONE; +MIDAZOLAM INJ 2MG/2ML VIAL As Ordered ONE; +ROCURONIUM BROMIDE 50MG/5ML VIAL As Ordered ONE; +fentaNYL 100 MCG/2 ML INJECTION As Ordered ONE; +propofoL 200 MG/20 ML VIAL As Ordered ONE
[2023-09-14] MEDS ORDERED: ceFAZolin 2 GM/D5W 50 ML IV BAG As Ordered ONE (08:01)
[2023-09-14 08:05] LABS: HEMATOCRIT 40.1 % (36.0-47.0); HEMOGLOBIN 13.9 g/dl (12.0-15.5); MEAN CORPUSCULAR HGB CONC 34.7 g/dl (32.0-36.5); MEAN CORPUSCULAR VOLUME 86.6 fl (80.0-96.0); PLATELET COUNT, AUTOMATED 257 10^3/uL (150-450); RED BLOOD COUNT 4.63 10^6/uL (4.00-5.40); WHITE BLOOD COUNT 7.8 10^3/uL (4.0-10.0)
[2023-09-14] MEDS ORDERED: ceFAZolin SOD 2 GM in IV 1 EA IV ONE (08:30)
[2023-09-14] MEDS ORDERED: SUGAMMADEX SODIUM 500 MG/5 ML VIAL (BRIDION) As Ordered ONE (09:06)
[2023-09-14] MEDS ORDERED: ONDANSETRON 4MG 2ML VIAL As Ordered ONE (09:06)
[2023-09-14] MEDS ORDERED: ACETAMINOPHEN 1000MG 100ML IV BAG As Ordered ONE (09:06)
[2023-09-14] MEDS ORDERED: METOCLOPRAMIDE INJ 10MG/2ML VIAL As Ordered ONE (09:06)
[2023-09-14] MEDS ORDERED: HYDROmorphone HCL 2MG/ML 1ML VIAL As Ordered ONE (09:07)
[2023-09-14] MEDS ORDERED: ROCURONIUM BROMIDE 50MG/5ML VIAL As Ordered ONE (09:58)
[2023-09-14] MEDS ORDERED: OXYC1TAB23 PO (10:47)
[2023-09-14] MEDS ORDERED: IBUP80TA PO (10:49)
[2023-09-14] MEDS ORDERED: COLA100C5 PO (10:50)
[2023-09-14] MEDS ORDERED: diphenhydrAMINE 50MG/ML VIAL IV PRN ×2 (11:05→13:40)
[2023-09-14] MEDS ORDERED: oxyCODONE 5MG TAB PO PRN (11:05)
[2023-09-14] MEDS ORDERED: ONDANSETRON 4MG 2ML VIAL IV PRN ×2 (11:05→14:05)
[2023-09-14] MEDS ORDERED: LR 1,000 ML IV SCH ×2 (11:05→15:15)
[2023-09-14] MEDS ORDERED: METOCLOPRAMIDE INJ 10MG/2ML VIAL IV PRN (11:05)
[2023-09-14] MEDS ORDERED: HYDROMORPHONE HCL 0.5 MG/ 0.5 ML SYRINGE IV PRN (11:05)
[2023-09-14] MEDS ORDERED: MEPERIDINE 25 MG/ML 1ML VIAL IV PRN (11:05)
[2023-09-14] MEDS: fentaNYL 100 MCG/2 ML INJECTION IV PRN ×3 (11:18→11:31)
[2023-09-14] MEDS ORDERED: PROMETHAZINE 25MG/ML 1ML VIAL IV ONE (13:40)
[2023-09-14] MEDS ORDERED: PERCOCET 5MG/325MG TAB PO PRN ×2 (13:45→13:55)
[2023-09-14] MEDS ORDERED: MORPHINE 4 MG/ML 1ML VIAL IV PRN (14:00)
[2023-09-14] MEDS: KETOROLAC 30 MG/ML 1ML VIAL IV SCH ×2 (14:06→19:57)
[2023-09-15 02:00] VITALS: BP 91/64; TEMP 98.2; O2SAT 98
[2023-09-15] MEDS: KETOROLAC 30 MG/ML 1ML VIAL IV SCH ×2 (02:01→08:23)
[2023-09-15 06:00] VITALS: BP 113/59; TEMP 98.4
[2023-09-15] MEDS ORDERED: DOCUSATE SODIUM 100MG CAPSULE PO SCH (09:00)
[2023-09-15] MEDS ORDERED: MOM 30ML SUSPENSION UDC PO PRN (09:25)
[2023-09-15] MEDS ORDERED: SENNA 8.6 MG TAB (SENOKOT) PO PRN (09:25)
[2023-09-15] MEDS ORDERED: SIMETHICONE 80MG CHEW TAB PO PRN (09:25)
[2023-09-15 10:00] VITALS: BP 129/74; TEMP 97.7; O2SAT 99
== END 2023-09-15 11:12 | disposition home or self-care (01) ==
LOC: M SDC 07:38 → M OBS 07:39
PROVIDERS: ADMIT Obstetrics & Gynecology; ATTEND Obstetrics & Gynecology
DX: N83.202 Unspecified ovarian cyst, left side (principal); N93.9 Abnormal uterine and vaginal bleeding, unspecified; R10.2 Pelvic and perineal pain; J45.909 Unspecified asthma, uncomplicated; Z79.51 Long term (current) use of inhaled steroids; Z79.899 Other long term (current) drug therapy; Z88.0 Allergy status to penicillin; Z88.8 Allergy status to other drugs, medicaments and biological substances
CPT/HCPCS: 36415; 58571; 81025; 85027; 86850; 86900; 86901; 88305; 88307; 96374; 96375; 96376; J0131; J0665; J0690; J1170; J1885; J2250; J2405; J2550; J2765; J3010; Q9968; S2900

== ENCOUNTER → 2023-11-16 | Outpatient (REF) ==
[~2023-11-16] MED LIST changes: +CEFD1CAP9 PO; -CEFD300C42 PO; +COLA100C5 PO; -LIDOCAINE 2% 100MG/5ML SDV (FOR ANES.) As Ordered ONE; -METHYLENE BLUE 0.5% (5MG/ML) 10 ML AMP (PROVAYBLUE) As Ordered ONE; -MIDAZOLAM INJ 2MG/2ML VIAL As Ordered ONE; -ROCURONIUM BROMIDE 50MG/5ML VIAL As Ordered ONE; -fentaNYL 100 MCG/2 ML INJECTION As Ordered ONE; -propofoL 200 MG/20 ML VIAL As Ordered ONE
[2023-11-16 12:07] LABS: RSV AMPLIFICATION NEGATIVE (NEGATIVE)
== END ==
LOC: M EMP 09:34
PROVIDERS: ATTEND Family Medicine
DX: Z20.09 Contact with and (suspected) exposure to other intestinal infectious diseases (principal)

== ENCOUNTER → 2024-02-23 | Outpatient (CLI) | payer BC ==
[~2024-02-23] MED LIST changes: +LABE100T40 PO; -LABE100T71 PO
== END ==
LOC: M LAB 17:09
PROVIDERS: ATTEND Internal Medicine Pulmonary Disease
DX: J20.9 Acute bronchitis, unspecified (principal)

== ENCOUNTER → 2024-03-15 | Outpatient (CLI) | payer BC ==
[~2024-03-15] MED LIST changes: +ONDA-282 PO; -ONDA4TAB6 PO
== END ==
LOC: M EKG 11:20
PROVIDERS: ATTEND Internal Medicine Cardiovascular Disease
DX: R00.2 Palpitations (principal)

== ENCOUNTER → 2024-03-22 | Outpatient (CLI) | payer BC ==
[~2024-03-22] MED LIST changes: -ONDA-282 PO; +ONDA4TAB6 PO
== END ==
LOC: M PLAIMG 13:38
PROVIDERS: ATTEND Internal Medicine Cardiovascular Disease
DX: R06.02 Shortness of breath (principal)

== ENCOUNTER 2024-04-12 17:21 | Emergency (ER) | payer BC ==
[~2024-04-12] VITALS: Ht 167.6 cm; Wt 94.5 kg
[~2024-04-12 17:21] MED LIST changes: +ONDA-282 PO; -ONDA4TAB6 PO
[2024-04-12] MEDS ORDERED: ISOVUE-370 76% 100ML VIAL As Ordered ONE (18:37)
[2024-04-12 18:56] LABS: BASO % 0.5 % (0.0-1.0); EOS # 0.1 10^3/uL (0.0-0.5); EOS % 1.5 % (0.0-3.0); HEMOGLOBIN 13.7 g/dl (12.0-15.5); LYMPH # 2.2 10^3/uL (1.5-5.0); LYMPH % 25.8 % (24.0-44.0); MEAN CORPUSCULAR HEMOGLOBIN 29.8 pg (27.0-33.0); MEAN CORPUSCULAR HGB CONC 34.3 g/dl (32.0-36.5); MONO # 0.5 10^3/uL (0.0-0.8); MONO % 5.8 % (2.0-8.0); NEUTROPHILS # 5.8 10^3/uL (1.5-8.5); NEUTROPHILS % 66.1 % (36.0-66.0); PLATELET COUNT, AUTOMATED 222 10^3/uL (150-450); WHITE BLOOD COUNT 8.7 10^3/uL (4.0-10.0)
[2024-04-12 19:12] LABS: INR 1.02; PROTHROMBIN TIME 13.1 SECONDS (12.5-14.5)
[2024-04-12 19:20] LABS: CK-MB VALUE MASS < 1.0 NG/ML (<3.6)
[2024-04-12 19:22] LABS: BLOOD UREA NITROGEN 12 MG/DL (9-23); CALCIUM LEVEL 9.2 MG/DL (8.5-10.1); CARBON DIOXIDE LEVEL 30 MMOL/L (20-31); CHLORIDE LEVEL 106 MMOL/L (98-107); CPK CREATINE PHOSPHOKINASE 71 U/L (34-145); CREATININE FOR GFR 0.62 MG/DL (0.55-1.30); GLOMERULAR FILTRATION RATE > 60.0 (>60); GLUCOSE, FASTING 90 MG/DL (60-100); MAGNESIUM LEVEL 1.9 MG/DL (1.8-2.4); SODIUM LEVEL 140 MMOL/L (136-145)
[2024-04-12 19:23] LABS: HCG, SERUM QUALITATIVE NEGATIVE (NEGATIVE)
[2024-04-12 19:25] LABS: FREE T4 0.87 NG/DL (0.89-1.76)
[2024-04-12] MEDS: NS 1,000 ML IV ONE (19:33)
[2024-04-12 19:43] LABS: PROCALCITONIN <0.04 ng/ml
[2024-04-12 19:50] LABS: ERYTHROCYTE SEDIMENTATION RATE 10 mm/hr (0-20)
[2024-04-12 21:00] VITALS: BP 128/84; TEMP 97.7; O2SAT 100
== END 2024-04-12 21:09 | disposition home or self-care (01) ==
LOC: M ED 17:21
DX: R21 Rash and other nonspecific skin eruption (principal); R20.2 Paresthesia of skin; J45.909 Unspecified asthma, uncomplicated; Z88.1 Allergy status to other antibiotic agents; Z88.6 Allergy status to analgesic agent; Z88.8 Allergy status to other drugs, medicaments and biological substances; Z90.710 Acquired absence of both cervix and uterus; Z79.52 Long term (current) use of systemic steroids; Z79.899 Other long term (current) drug therapy
CPT/HCPCS: 70450; 70496; 70498; 71045; 80047; 80048; 82550; 82553; 83735; 84145; 84439; 84443; 84484; 84703; 85025; 85610; 85652; 85730; 86140; 93005; 93041; 94760; 96360; 96361; 99285; Q9967

== ENCOUNTER 2024-06-16 12:00 | Emergency (ER) | payer OTHER, BC ==
[~2024-06-16] VITALS: Ht 167.6 cm; Wt 94.5 kg
[2024-06-16] MEDS ORDERED: LIDO5DIS41 TOP (14:05)
[2024-06-16] MEDS: ACETAMINOPHEN 500 MG TAB PO ONE (14:16)
[2024-06-16] MEDS: IBUPROFEN 600MG TAB PO ONE (14:17)
[2024-06-16] MEDS: LIDOCAINE 5% (LIDODERM) PATCH TD ONE (14:17)
[2024-06-16 14:23] VITALS: BP 132/86; TEMP 97.3; O2SAT 100
== END 2024-06-16 14:24 | disposition home or self-care (01) ==
LOC: M ED 12:00
DX: S43.51XA Sprain of right acromioclavicular joint, initial encounter (principal); X50.0XXA Overexertion from strenuous movement or load, initial encounter; Z88.1 Allergy status to other antibiotic agents; Z88.8 Allergy status to other drugs, medicaments and biological substances; Y92.9 Unspecified place or not applicable; Y93.F9 Activity, other caregiving; Y99.0 Civilian activity done for income or pay; Z79.52 Long term (current) use of systemic steroids; Z79.899 Other long term (current) drug therapy; Z79.1 Long term (current) use of non-steroidal anti-inflammatories (NSAID)

== ENCOUNTER → 2024-10-11 | Outpatient (REF) ==
[~2024-10-11] MED LIST changes: +LIDO5DIS41 TOP
== END ==
LOC: M EMP 11:29
PROVIDERS: ATTEND Family Medicine
DX: Z20.828 Contact with and (suspected) exposure to other viral communicable diseases (principal)

== ENCOUNTER → 2024-10-11 | Outpatient (REF) ==
[2024-10-11 13:09] LABS: RSV AMPLIFICATION NEGATIVE (NEGATIVE)
== END ==
LOC: M EMP 12:17
PROVIDERS: ATTEND Family Medicine
DX: Z11.52 Encounter for screening for COVID-19 (principal)

== ENCOUNTER → 2024-10-13 | Outpatient (CLI) | payer BC, OTHER | LOC: M RAD 14:52 | PROVIDERS: ATTEND Internal Medicine Pulmonary Disease | DX: R05.9 Cough, unspecified (principal); R06.02 Shortness of breath; J45.20 Mild intermittent asthma, uncomplicated ==

== ENCOUNTER 2024-10-27 11:13 | Emergency (ER) | payer BC ==
[~2024-10-27] VITALS: Ht 167.6 cm; Wt 94.1 kg
[2024-10-27 11:15] VITALS: TEMP 97.3
[2024-10-27] MEDS ORDERED: CLOT10TR (11:20)
[2024-10-27 12:40] LABS: BASO % 0.4 % (0.0-1.0); EOS # 0.1 10^3/uL (0.0-0.5); EOS % 1.2 % (0.0-3.0); HEMATOCRIT 38.8 % (36.0-47.0); HEMOGLOBIN 13.3 g/dl (12.0-15.5); LYMPH # 1.9 10^3/uL (1.5-5.0); LYMPH % 23.3 % (24.0-44.0); MEAN CORPUSCULAR HEMOGLOBIN 29.9 pg (27.0-33.0); MEAN CORPUSCULAR HGB CONC 34.3 g/dl (32.0-36.5); MEAN CORPUSCULAR VOLUME 87.2 fl (80.0-96.0); MONO # 0.6 10^3/uL (0.0-0.8); MONO % 6.8 % (2.0-8.0); NEUTROPHILS # 5.6 10^3/uL (1.5-8.5); NEUTROPHILS % 68.1 % (36.0-66.0); PLATELET COUNT, AUTOMATED 212 10^3/uL (150-450); RED BLOOD COUNT 4.45 10^6/uL (4.00-5.40); WHITE BLOOD COUNT 8.3 10^3/uL (4.0-10.0)
[2024-10-27 13:15] LABS: ERYTHROCYTE SEDIMENTATION RATE 15 mm/hr (0-20)
[2024-10-27 13:16] LABS: ALBUMIN 3.4 G/DL (3.2-5.2); ALKALINE PHOSPHATASE 61 U/L (35-104); ALT/SGPT 23 U/L (7.0-40); AST/SGOT 18 U/L (<34); BILIRUBIN,DIRECT 0.2 MG/DL (<0.4); BILIRUBIN,TOTAL 0.6 MG/DL (0.3-1.2); BLOOD UREA NITROGEN 13 MG/DL (9-23); C REACTIVE PROTEIN QUANTITATIV 2.05 MG/DL (<1.0); CALCIUM LEVEL 9.2 MG/DL (8.5-10.1); CARBON DIOXIDE LEVEL 28 MMOL/L (20-31); CHLORIDE LEVEL 105 MMOL/L (98-107); CREATININE FOR GFR 0.57 MG/DL (0.55-1.30); GLOMERULAR FILTRATION RATE > 60.0 (>60); GLUCOSE, FASTING 88 MG/DL (60-100); SODIUM LEVEL 141 MMOL/L (136-145); TOTAL PROTEIN 6.8 G/DL (5.7-8.2)
[2024-10-27 13:18] LABS: FREE T4 0.84 NG/DL (0.89-1.76); THYROID STIMULATING HORMONE 6.011 uIU/ML (0.55-4.78)
[2024-10-27 13:28] LABS: CPK CREATINE PHOSPHOKINASE 57 U/L (34-145)
[2024-10-27] MEDS ORDERED: NYST-38 PO (13:46)
[2024-10-27 13:53] VITALS: BP 141/91; O2SAT 100
== END 2024-10-27 13:54 | disposition home or self-care (01) ==
LOC: M ED 11:13
DX: M65.272 Calcific tendinitis, left ankle and foot (principal); M67.834 Other specified disorders of tendon, left wrist; F90.9 Attention-deficit hyperactivity disorder, unspecified type; J45.909 Unspecified asthma, uncomplicated; I83.90 Asymptomatic varicose veins of unspecified lower extremity; Z79.52 Long term (current) use of systemic steroids; Z79.1 Long term (current) use of non-steroidal anti-inflammatories (NSAID); Z79.899 Other long term (current) drug therapy; Z88.1 Allergy status to other antibiotic agents; Z88.8 Allergy status to other drugs, medicaments and biological substances

== ENCOUNTER → 2024-11-08 | Outpatient (REF) ==
[~2024-11-08] MED LIST changes: +CLOT10TR; +NYST-38 PO
== END ==
LOC: M EMP 09:50
PROVIDERS: ATTEND Family Medicine
DX: Z01.89 Encounter for other specified special examinations (principal)

== ENCOUNTER → 2024-11-12 | Outpatient (REF) | payer BC ==
[~2024-11-12] MED LIST changes: -ADV500INH INH; +ADVA1AER10 INH
== END ==
LOC: M LAB REF 08:44
PROVIDERS: ATTEND Internal Medicine Pulmonary Disease
DX: R05.9 Cough, unspecified (principal); J45.20 Mild intermittent asthma, uncomplicated; R06.02 Shortness of breath

== ENCOUNTER → 2024-12-05 | Outpatient (REF) | payer BC ==
[2024-12-05 17:56] LABS: BASO % 0.4 % (0.0-1.0); EOS # 0.1 10^3/uL (0.0-0.5); EOS % 1.5 % (0.0-3.0); HEMATOCRIT 42.4 % (36.0-47.0); HEMOGLOBIN 14.3 g/dl (12.0-15.5); LYMPH # 2.1 10^3/uL (1.5-5.0); LYMPH % 31.4 % (24.0-44.0); MEAN CORPUSCULAR HEMOGLOBIN 29.4 pg (27.0-33.0); MEAN CORPUSCULAR HGB CONC 33.7 g/dl (32.0-36.5); MEAN CORPUSCULAR VOLUME 87.2 fl (80.0-96.0); MONO # 0.4 10^3/uL (0.0-0.8); MONO % 5.5 % (2.0-8.0); NEUTROPHILS # 4.1 10^3/uL (1.5-8.5); NEUTROPHILS % 61.1 % (36.0-66.0); PLATELET COUNT, AUTOMATED 251 10^3/uL (150-450); RED BLOOD COUNT 4.86 10^6/uL (4.00-5.40); WHITE BLOOD COUNT 6.8 10^3/uL (4.0-10.0)
[2024-12-05 18:16] LABS: IMMUNOGLOBULIN A 201.3 MG/DL (40-350)
[2024-12-05 18:20] LABS: IMMUNOGLOBULIN E 65.6 IU/ML (0-378)
== END ==
LOC: M LAB REF 17:05
PROVIDERS: ATTEND Internal Medicine Pulmonary Disease
DX: J45.20 Mild intermittent asthma, uncomplicated (principal)

== ENCOUNTER 2025-01-15 12:49 | Emergency (ER) | payer BC ==
[~2025-01-15] VITALS: Ht 167.6 cm; Wt 96.3 kg
[2025-01-15] MEDS ORDERED: LEVO25TA5 PO (13:05)
[2025-01-15] MEDS ORDERED: LISD60CA PO (13:05)
[2025-01-15 13:22] LABS: BASO % 0.1 % (0.0-1.0); EOS # 0.1 10^3/uL (0.0-0.5); EOS % 0.5 % (0.0-3.0); HEMOGLOBIN 14.8 g/dl (12.0-15.5); LYMPH # 0.5 10^3/uL (1.5-5.0); MEAN CORPUSCULAR HEMOGLOBIN 30.5 pg (27.0-33.0); MEAN CORPUSCULAR HGB CONC 34.4 g/dl (32.0-36.5); MEAN CORPUSCULAR VOLUME 88.5 fl (80.0-96.0); MONO # 0.5 10^3/uL (0.0-0.8); MONO % 3.5 % (2.0-8.0); NEUTROPHILS # 11.6 10^3/uL (1.5-8.5); NEUTROPHILS % 91.5 % (36.0-66.0); PLATELET COUNT, AUTOMATED 212 10^3/uL (150-450); RED BLOOD COUNT 4.86 10^6/uL (4.00-5.40); WHITE BLOOD COUNT 12.7 10^3/uL (4.0-10.0)
[2025-01-15] MEDS: NS (Normal Saline) 0.9% 1,000 ML IV ONE (13:25)
[2025-01-15 13:55] LABS: ALBUMIN 3.9 G/DL (3.2-5.2); ALKALINE PHOSPHATASE 67 U/L (35-104); ALT/SGPT 27 U/L (7.0-40); AST/SGOT 22 U/L (<34); BILIRUBIN,DIRECT 0.2 MG/DL (<0.4); BILIRUBIN,TOTAL 0.7 MG/DL (0.3-1.2); BLOOD UREA NITROGEN 15 MG/DL (9-23); CALCIUM LEVEL 8.7 MG/DL (8.5-10.1); CARBON DIOXIDE LEVEL 25 MMOL/L (20-31); CHLORIDE LEVEL 107 MMOL/L (98-107); CREATININE FOR GFR 0.51 MG/DL (0.55-1.30); GLOMERULAR FILTRATION RATE > 60.0 (>60); GLUCOSE, FASTING 93 MG/DL (60-100); MAGNESIUM LEVEL 1.7 MG/DL (1.8-2.4); POTASSIUM SERUM 4.1 MMOL/L (3.5-5.1); SODIUM LEVEL 140 MMOL/L (136-145)
[2025-01-15] MEDS: METOCLOPRAMIDE INJ 10MG/2ML VIAL IV ONE (14:19)
[2025-01-15 16:30] VITALS: BP 128/64
[2025-01-15 16:34] VITALS: O2SAT 100
[2025-01-15 16:55] VITALS: TEMP 99.4
== END 2025-01-15 16:51 | disposition home or self-care (01) ==
LOC: M ED 12:49
DX: A08.11 Acute gastroenteropathy due to Norwalk agent (principal); J45.909 Unspecified asthma, uncomplicated; F90.9 Attention-deficit hyperactivity disorder, unspecified type; Z88.1 Allergy status to other antibiotic agents; Z88.8 Allergy status to other drugs, medicaments and biological substances; Z79.52 Long term (current) use of systemic steroids; Z79.899 Other long term (current) drug therapy
CPT/HCPCS: 80048; 80076; 83735; 85025; 87507; 96361; 96374; 99284; J2765

== ENCOUNTER 2025-03-14 19:05 | Emergency (ER) | payer BC ==
[~2025-03-14] VITALS: Ht 167.6 cm; Wt 97.3 kg
[~2025-03-14 19:05] MED LIST changes: -CLOT10TR; +CLOT10TR11; +LEVO25TA5 PO; +LISD60CA PO; -PHEN-239 PO; +PHEN37.511 PO
[2025-03-14 19:22] VITALS: TEMP 97.5
[2025-03-14 19:44] LABS: BASO # 0.1 10^3/uL (0.0-0.2); BASO % 0.5 % (0.0-1.0); EOS # 0.1 10^3/uL (0.0-0.5); EOS % 0.9 % (0.0-3.0); HEMATOCRIT 40.3 % (36.0-47.0); HEMOGLOBIN 13.8 g/dl (12.0-15.5); LYMPH # 2.9 10^3/uL (1.5-5.0); LYMPH % 27.6 % (24.0-44.0); MEAN CORPUSCULAR HEMOGLOBIN 29.7 pg (27.0-33.0); MEAN CORPUSCULAR HGB CONC 34.2 g/dl (32.0-36.5); MEAN CORPUSCULAR VOLUME 86.7 fl (80.0-96.0); MONO # 0.7 10^3/uL (0.0-0.8); MONO % 6.7 % (2.0-8.0); NEUTROPHILS # 6.7 10^3/uL (1.5-8.5); PLATELET COUNT, AUTOMATED 272 10^3/uL (150-450); RED BLOOD COUNT 4.65 10^6/uL (4.00-5.40); WHITE BLOOD COUNT 10.5 10^3/uL (4.0-10.0)
[2025-03-14] MEDS: NS (Normal Saline) 0.9% 1,000 ML IV ONE (20:02)
[2025-03-14 20:05] LABS: CK-MB VALUE MASS < 1.0 NG/ML (<3.6)
[2025-03-14 20:07] LABS: CPK CREATINE PHOSPHOKINASE 59 U/L (34-145); MB/CK RELATIVE INDEX 1.69 (< OR =4)
[2025-03-14 20:10] LABS: THYROID STIMULATING HORMONE 3.866 uIU/ML (0.55-4.78)
[2025-03-14 20:18] LABS: BLOOD UREA NITROGEN 16 MG/DL (9-23); CALCIUM LEVEL 8.9 MG/DL (8.5-10.1); CARBON DIOXIDE LEVEL 28 MMOL/L (20-31); CHLORIDE LEVEL 104 MMOL/L (98-107); CREATININE FOR GFR 0.62 MG/DL (0.55-1.30); GLOMERULAR FILTRATION RATE > 90.0 (>60); GLUCOSE, FASTING 88 MG/DL (60-100); POTASSIUM SERUM 4.2 MMOL/L (3.5-5.1); SODIUM LEVEL 140 MMOL/L (136-145)
[2025-03-14] MEDS ORDERED: HOLTER MONITOR XX (21:43)
[2025-03-14 21:45] VITALS: BP 140/76; O2SAT 100
== END 2025-03-14 22:05 | disposition home or self-care (01) ==
LOC: M ED 19:05
DX: R00.2 Palpitations (principal); J45.909 Unspecified asthma, uncomplicated; E03.9 Hypothyroidism, unspecified; Z88.1 Allergy status to other antibiotic agents; Z88.8 Allergy status to other drugs, medicaments and biological substances; Z79.52 Long term (current) use of systemic steroids; Z79.899 Other long term (current) drug therapy

== ENCOUNTER 2025-05-24 17:59 | Emergency (ER) | payer OTHER, BC ==
[~2025-05-24] VITALS: Ht 167.6 cm; Wt 96.4 kg
[~2025-05-24 17:59] MED LIST changes: +HOLTER MONITOR XX; +LIDO1ADH93 TOP; -LIDO5DIS41 TOP
[2025-05-24] MEDS: IBUPROFEN 600 MG TAB PO ONE (19:04)
[2025-05-24 21:08] VITALS: BP 155/92; TEMP 98; O2SAT 98
== END 2025-05-24 22:04 | disposition home or self-care (01) ==
LOC: M ED 17:59
DX: S86.112A Strain of other muscle(s) and tendon(s) of posterior muscle group at lower leg level, left leg, initial encounter (principal); X50.0XXA Overexertion from strenuous movement or load, initial encounter; F90.9 Attention-deficit hyperactivity disorder, unspecified type; E03.9 Hypothyroidism, unspecified; Y92.89 Other specified places as the place of occurrence of the external cause; Y93.89 Activity, other specified; Y99.0 Civilian activity done for income or pay; Z88.1 Allergy status to other antibiotic agents; Z88.8 Allergy status to other drugs, medicaments and biological substances; Z79.52 Long term (current) use of systemic steroids; Z79.1 Long term (current) use of non-steroidal anti-inflammatories (NSAID); Z79.899 Other long term (current) drug therapy

== ENCOUNTER → 2025-10-20 | Outpatient (CLI) | payer OTHER, BC ==
[~2025-10-20] MED LIST changes: -DIPH50CA PO; +DIPH50CA31 PO
== END ==
LOC: M SOG 07:38
PROVIDERS: ATTEND Physician Assistant
DX: M25.572 Pain in left ankle and joints of left foot (principal)